=== PATIENT | female | born 1955 | race Caucasian/White ===

== ENCOUNTER 2019-06-11 00:56 | Inpatient (IN) | payer OTHER ==
[~2019-06-11] VITALS: Ht 162.6 cm; Wt 71.5 kg
[~2019-06-11 00:56] MED LIST: AMIO200T4 PO; GLIP10TA14 PO; LOSA50TA14 PO; METF100010 PO; OMEP20CA16 PO; PRAV20TA63 PO; SITA100T11 PO
[2019-06-11] MEDS ORDERED: LIDOCAINE/MYLANTA 40 ML BTL PO STA (02:45)
[2019-06-11] MEDS ORDERED: SOD CHLORIDE 0.9% 1,000 ML IV STA (02:45)
[2019-06-11] MEDS ORDERED: BELLADONNA/PHENOBARBITAL TAB PO STA (02:45)
[2019-06-11] MEDS ORDERED: KETOROLAC 15 MG INJ IV STA (02:45)
[2019-06-11] MEDS ORDERED: ONDANSETRON 4 MG INJ IV STA (02:45)
--- NOTE | 2019-06-11 03:04 | ERD ---
ER Documentation Chief Complaint Chief Complaint abdominal pain/nausea/vomiting x 1 day HPI 63-year-old woman complains of diffuse abdominal pain and cramping x1 day with a few episodes of clear nonbloody nonbilious emesis and loose stools. She has had no blood per rectum or melena, no hematemesis, no fevers or chills, no chest pa in or shortness of breath. Patient has had prior section but no other abdominal surgeries, no dysuria, no weight loss, no complaints of chest pain or shortness of breath ROS All systems reviewed and are negative except as per history of present illness. Allergies Allergies: Coded Allergies: No Known Drug Allergies (Verified Allergy, Unknown, 06/11/19) PMhx/Soc History of Surgery: Yes () Anesthesia Reaction: No Hx Neurological Disorder: No Hx Respiratory Disorders: No Hx Cardiac Disorders: Yes (HTN) Hx Psychiatric Problems: No Hx Miscellaneous Medical Probl: No Hx Alcohol Use: No Hx Substance Use: No Hx Tobacco Use: No Smoking Status: Never smoker FmHx Family History: No diabetes Physical Exam Vitals Vital Signs Date Temp Pulse Resp B/P (MAP) Pulse Ox O2 O2 Flow FiO2 Time Delivery Rate 06/11/19 97.9 79 18 118/62 98 Room Air 04:05 (80) 06/11/19 97.8 85 18 144/79 98 Room Air 02:40 (100) 06/11/19 98.1 98 18 147/82 99 01:01 (103) Physical Exam GENERAL: Well-developed, well-nourished, well-hydrated, moderate discomfort, afebrile CARDIAC: Regular rate and rhythm, no murmurs rubs or gallops LUNGS: Clear bilaterally no wheezing crackles or stridor ABDOMEN: Soft nontender, no guarding, no rigidity, no rebound, no psoas sign no obturator sign. SKIN: Warm and dry to touch, no abrasions, contusions, or hematomas, no lacerations, no ecchymosis, no target lesions, and without ulcers EXTREMITIES: No clubbing cyanosis or edema, calves are bilaterally symmetrical, no Homans sign, no popliteal cord sign. Distal pulses equal and bilateral PSYCH: Normal affect without agitation or irritability Result Diagram: 06/11/19 0246 06/11/19 0246 Results 24 hrs Laboratory Tests Test 06/11/19 02:46 White Blood Count 15.3 10^3/ul Red Blood Count 4.67 10^6/ul Hemoglobin 14.0 g/dl Hematocrit 42.9 % Mean Corpuscular Volume 91.9 fl Mean Corpuscular Hemoglobin 30.0 pg Mean Corpuscular Hemoglobin Concent 32.6 g/dl Red Cell Distribution Width 13.1 % Platelet Count 351 10^3/UL Mean Platelet Volume 9.8 fl Immature Granulocytes % 0.500 % Neutrophils % 78.0 % Lymphocytes % 13.7 % Monocytes % 6.9 % Eosinophils % 0.6 % Basophils % 0.3 % Nucleated Red Blood Cells % 0.0 /100WBC Immature Granulocytes # 0.080 10^3/ul Neutrophils # 12.0 10^3/ul Lymphocytes # 2.1 10^3/ul Monocytes # 1.1 10^3/ul Eosinophils # 0.1 10^3/ul Basophils # 0.0 10^3/ul Nucleated Red Blood Cells # 0.0 10^3/ul Prothrombin Time 11.7 Sec Prothrombin Time Ratio 0.9 INR International Normalized Ratio 0.85 Activated Partial Thromboplast Time 28.3 Sec Urine Color YELLOW Urine Clarity SLIGHTLY CLOUDY Urine pH 5.0 Urine Specific [place] 1.018 Urine Ketones NEGATIVE mg/dL Urine Nitrite POSITIVE mg/dL Urine Bilirubin NEGATIVE mg/dL Urine Urobilinogen NEGATIVE mg/dL Urine Leukocyte Esterase 3+ [place]/ul Urine Microscopic RBC 23 /HPF Urine Microscopic WBC 134 /HPF Urine Bacteria MODERATE /HPF Urine Hemoglobin 2+ mg/dL Urine Glucose 3+ mg/dL Urine Total Protein 1+ mg/dl Sodium Level 140 mmol/L Potassium Level 3.8 mmol/L Chloride Level 100 mmol/L Carbon Dioxide Level 29 mmol/L Anion Gap 11 Blood Urea Nitrogen 12 mg/dl Creatinine 0.63 mg/dl Est Glomerular Filtrat Rate mL/min > 60 mL/min Glucose Level 208 mg/dl Calcium Level 9.9 mg/dl Total Bilirubin 0.4 mg/dl Direct Bilirubin 0.00 mg/dl Indirect Bilirubin 0.4 mg/dl Aspartate Amino Transf (AST/SGOT) 25 IU/L Alanine Aminotransferase (ALT/SGPT) 30 IU/L Alkaline Phosphatase 96 IU/L Total Protein 7.5 g/dl Albumin 4.5 g/dl Globulin 3.00 g/dl Albumin/Globulin Ratio 1.50 Lipase 141 U/L Current Medications Medications Dose Sig/Julianne Start Time Status Last (Trade) Ordered Route PRN Stop Time Admin Dose Reason Admin Sodium 1,000 ml @ Q1H STAT 06/11/19 DC 06/11/19 Chloride 1,000 mls/hr IV 02:45 03:27 06/11/19 03:44 Ondansetron 4 mg ONCE STAT 06/11/19 DC 06/11/19 HCl (Zofran IV 02:45 03:08 Inj) 06/11/19 02:47 40 ml ONCE STAT 06/11/19 DC 06/11/19 Miscellaneous PO 02:45 03:10 Medication 06/11/19 02:47 (Gi Cocktail (2)) Belladonna/ 2 tab ONCE STAT 06/11/19 DC 06/11/19 Phenobarbital PO 02:45 03:10 () 06/11/19 02:47 Ketorolac 15 mg ONCE STAT 06/11/19 DC 06/11/19 Tromethamine IV 02:45 03:09 (Toradol) 06/11/19 02:47 Ceftriaxone 50 ml @ ONCE ONCE 06/11/19 DC 06/11/19 Sodium 100 mls/hr IVPB 03:30 03:27 06/11/19 03:59 Procedures/MDM IV line was established patient was placed on monitoring coordinator rhythm strip revealed a sinus rhythm at about 80 bpm with upright P and T waves. Patient was afebrile I administered 1 L normal saline IV, Toradol 15 mg IV, Zofran 4 mg IV, GI cocktail p.o. CBC revealed a leukocytosis, electrolytes were unremarkable, liver function tests normal, urinalysis positive for infection. I treated the patient with ceftriaxone [address] scan of the abdomen pelvis revealed gallstones without evidence of cholecystitis and gas within the renal collecting system and a nonobstructing 2 cm renal pelvis calculus I spoke to urologist network control operators supervisor regarding the patient's presentation and symptomatology, he recommended inpatient management and admission and agreed to consult the patient. I also administered Zosyn 3.375 g IV. Patient admitted to [facility]. Departure Diagnosis: Primary Impression: Emphysematous pyelonephritis of right kidney Additional Impression: Acute UTI Condition: ANA PAULA Wick MD Jun 11, 2019 03:04
[2019-06-11] MEDS ORDERED: CEFTRIAXONE 1 GM/50 ML (PMX) 50 ML IVPB ONE (03:30)
[2019-06-11] MEDS ORDERED: PIPER-TAZO 3.375 GM IV (PMX) 100 ML IVPB ONE (05:30)
[2019-06-11] MEDS ORDERED: TAMSULOSIN (SR) 0.4 MG CAP PO ONE (05:30)
[2019-06-11] MEDS ORDERED: DOCUSATE SODIUM 100 MG CAP PO PRN (05:30)
[2019-06-11] MEDS ORDERED: BISACODYL (EC) 5 MG TAB PO PRN (05:30)
[2019-06-11] MEDS ORDERED: ONDANSETRON 4 MG INJ IV PRN (05:30)
[2019-06-11] MEDS ORDERED: NACL 0.9% 3 ML SYG IV SCH (05:30)
[2019-06-11] MEDS: SOD CHLORIDE 0.9% 1,000 ML IV SCH ×3 (06:17→23:28)
[2019-06-11] MEDS: KETOROLAC 15 MG INJ IV SCH ×4 (06:18→23:28)
[2019-06-11 08:00] VITALS: BP 133/75; PULSE 71; RESP 18
--- NOTE | 2019-06-11 08:28 | HP ---
Date/Time of Note Date/Time of Note DATE: 06/11/19 TIME: 08:20 Assessment/Plan VTE Prophylaxis SCD applied (from Nsg): Yes Pharmacological prophylaxis: NA/contraindicated Pharm contraindication: low risk/ambulating Lines/Catheters IV Catheter Type (from Nrsg): Saline Lock Assessment/Plan Hospital Course This is a 63-year-old female being admitted to the [facility] floor for: #1 infected kidney stone: CT down pelvis shows:1. 2 cm nonobstructing right renal pelvis calcified calculus. No other calcified urinary calculi. No obstructive uropathy bilaterally. Scattered focal areas of gas within the right pelvocaliceal system ureter and urinary bladder and rule out infection versus recent instrumentation. #2 urinary tract infection: Patient did receive ceftriaxone and Zosyn in the emergency department continue ceftriaxone 2 g every 24 hours. Await urine culture results. #3 diabetes mellitus: Insulin sliding scale, hold home oral medications check hemoglobin A1c #4 hypertension: Continue losartan #5 gastritis: Continue PPI #6 hyperlipidemia: Check lipid panel, continue statin #7 DVT GI prophylaxis: SCDs, GI prophylaxis indicated1. Result Diagram: 06/11/19 0246 06/11/19 0246 Results 24hrs Laboratory Tests Test 06/11/19 02:46 White Blood Count 15.3 H Red Blood Count 4.67 Hemoglobin 14.0 Hematocrit 42.9 Mean Corpuscular Volume 91.9 Mean Corpuscular Hemoglobin 30.0 Mean Corpuscular Hemoglobin Concent 32.6 Red Cell Distribution Width 13.1 Platelet Count 351 Mean Platelet Volume 9.8 Immature Granulocytes % 0.500 H Neutrophils % 78.0 H Lymphocytes % 13.7 L Monocytes % 6.9 Eosinophils % 0.6 Basophils % 0.3 Nucleated Red Blood Cells % 0.0 Immature Granulocytes # 0.080 H Neutrophils # 12.0 H Lymphocytes # 2.1 Monocytes # 1.1 H Eosinophils # 0.1 Basophils # 0.0 Nucleated Red Blood Cells # 0.0 Prothrombin Time 11.7 L Prothrombin Time Ratio 0.9 INR International Normalized Ratio 0.85 Activated Partial Thromboplast Time 28.3 Urine Color YELLOW Urine Clarity SLIGHTLY CLOUDY A Urine pH 5.0 Urine Specific [place] 1.018 Urine Ketones NEGATIVE Urine Nitrite POSITIVE A Urine Bilirubin NEGATIVE Urine Urobilinogen NEGATIVE Urine Leukocyte Esterase 3+ H Urine Microscopic RBC 23 H Urine Microscopic WBC 134 H Urine Bacteria MODERATE Urine Hemoglobin 2+ H Urine Glucose 3+ H Urine Total Protein 1+ H Sodium Level 140 Potassium Level 3.8 Chloride Level 100 Carbon Dioxide Level 29 Anion Gap 11 Blood Urea Nitrogen 12 Creatinine 0.63 Est Glomerular Filtrat Rate mL/min > 60 Glucose Level 208 Calcium Level 9.9 Total Bilirubin 0.4 Direct Bilirubin 0.00 Indirect Bilirubin 0.4 Aspartate Amino Transf (AST/SGOT) 25 Alanine Aminotransferase (ALT/SGPT) 30 Alkaline Phosphatase 96 Total Protein 7.5 Albumin 4.5 Globulin 3.00 Albumin/Globulin Ratio 1.50 Lipase 141 HPI/ROS Admit Date/Time Admit Date/Time Jun 11, 2019 at 05:20 Hx of Present Illness Chief complaint: Abdominal pain x1 day 63-year-old woman complains of diffuse abdominal pain and cramping x1 1 week with worsening over the last night. With a few episodes of clear nonbloody nonbilious emesis and loose stools. She does report subjective fevers. She has had no blood per rectum or melena, no hematemesis, no chest pain or shortness of breath. Patient has had prior section but no other abdominal surgeries, no dysuria, no weight loss, no complaints of chest pain or shortness of breath. Allergies: NKDA Medications: Metformin 1000 mg p.o. twice daily Losartan 50 mg p.o. daily Glipizide 10 mg p.o. twice daily Omeprazole 20 mg p.o. Pravastatin 20 mg p.o. at bedtime Januvia 100 mg p.o. . ROS Const: As per HPI Eyes : No pain discharge or redness or change in visual acuity ENT: No pain, sore throat, congestion, congestion, dysphagia or discharge Respiratory: No shortness of breath, cough, sputum, wheezing, or pleuritic pain Cardiovascular: No chest pain, palpitation, PND, or edema GI : As per HPI Genitourinary: As per HPI Musculoskeletal: No joint pain, back pain, neck pain, restricted range of motion in neck or joints Skin: No rash, bruising or hives Neuro: No headache, dizziness, syncope, seizure, focal weakness Endocrine: No polyuria, polydipsia, temperature intolerance Psych: No hallucination, depression, anxiety or suicidal ideation PMH/Family/Social Past Medical History Diabetes mellitus Hypertension Hyperlipidemia Medications Current Medications Sodium Chloride 1,000 ml @ 100 mls/hr Q10H IV Last administered on 06/11/19at 06:17; Admin Dose 100 MLS/HR; Start 06/11/19 at 05:22 IV Flush (NS 3 ml) 3 ml PER PROTOCOL IV ; Start 06/11/19 at 05:30 Ondansetron HCl (Zofran Inj) 4 mg Q6H PRN IV NAUSEA/VOMITING; Start 06/11/19 at 05:30 Acetaminophen (Tylenol Tab) 650 mg Q6H PRN PO .PAIN 1-3 OR TEMP; Start 06/11/19 at 05:30 Hydromorphone HCl (Dilaudid) 0.5 mg Q4H PRN IV .SEVERE PAIN 7-10; Start 06/11/19 at 05:30 Docusate Sodium (Colace) 100 mg Q12H PRN PO .CONSTIPATION; Start 06/11/19 at 05:30 Bisacodyl (Dulcolax) 5 mg DAILY PRN PO .CONSTIPATION; Start 06/11/19 at 05:30 Ketorolac Tromethamine (Toradol) 15 mg Q6H IV Last administered on 06/11/19at 06:18; Admin Dose 15 MG; Start 06/11/19 at 05:30; Stop 06/13/19 at 05:29 Tamsulosin HCl (Flomax) 0.4 mg HS PO ; Start 06/11/19 at 21:00 Coded Allergies: No Known Drug Allergies (Verified Allergy, Unknown, 06/11/19) Past Surgical History x4 Family History Significant Family History: no pertinent family hx Social History Alcohol Use: none Smoking Status: Unknown if ever smoked Drug Use: none Exam/Review of Systems Vital Signs Vitals Vital Signs Date Temp Pulse Resp B/P (MAP) Pulse Ox O2 O2 Flow FiO2 Time Delivery Rate 06/11/19 90 18 111/62 96 Room Air 06:59 (78) 06/11/19 98.9 05:35 Exam Exam General: Patient currently lying in bed, she is in blankets and reports that she feels cold HEENT: Atraumatic, normocephalic. The pupils are equal, round and reactive. Extraocular motor are intact Neck: Supple with full range of motion. No rigidity or meningismus Chest: Nontender Lungs: Clear to auscultation bilaterally no crackles rales or wheezing Heart: Normal S1-S2, Regular rhythm and rate. No murmur, S3, or S4 Abdomen: Soft , nontender, nondistended , bowel sounds are present. No guarding no rebound tenderness , No masses or organomegaly. No costovertebral temporal angle mass Extremities: Normal to inspection, no edema no cyanosis Neurologic: Normal mental status, speech normal, cranial nerves II through XII are intact, motor and sensory are intact, Additional Comments PROCEDURE: CT Abdomen and pelvis without contrast. CLINICAL INDICATION: Abdominal pain TECHNIQUE: CT scan of the abdomen and pelvis without contrast was performed on a multidetector high-resolution CT scan. . Coronal and sagittal reformatted images were obtained from the axial source images. Standard CT scan of the abdomen pelvis without contrast protocols were performed. The total exam CTDI equals 11.99 mGy and the total exam DLP equals 698.25 mGy- cm. One or more of the following dose reduction techniques were used: - Automated exposure control. - Adjustment of the mA and/or kV according to patient size. Use of iterative reconstruction technique. Dicom images are available COMPARISON: None. FINDINGS: The kidneys are normal in size without hydronephrosis or intra renal masses bilaterally. In the right renal pelvis is a 2 cm non-obstructing calcified calculus. No other calcified calculi bilaterally. Note that there are scattered focal areas of gas within the right pelvocaliceal system and right ureter and urinary bladder and rule out infection. Left ureter are unremarkable. Contracted urinary bladder otherwise unremarkable. A definite appendix is not visualized however no CT evidence of appendicitis. The stomach small bowel and large bowel are unremarkable. No evidence of intra-abdominal free air, free fluid, abscesses or lymphadenopathy. The diffuse mild hepatic fatty infiltration without focal hepatic lesions. Spleen pancreas and adrenal glands unremarkable. 5 mm calcified gallstone at the level the gallbladder neck within an otherwise unremarkable contracted gallbladder. No biliary ductal dilation. Mild dependent subsegmental atelectasis and chronic interstitial lung disease. Calcific atherosclerosis of the aorta and iliac arteries without aneurysm. Abdominal pelvic wall unremarkable. Degenerative changes lower thoracic and lumbar spine without acute osseous findings are osteoblastic/osteolytic lesions. IMPRESSION: 1. 2 cm nonobstructing right renal pelvis calcified calculus. No other calcified urinary calculi. No obstructive uropathy bilaterally. 2. Scattered focal areas of gas within the right pelvocaliceal system ureter and urinary bladder and rule out infection versus recent instrumentation. 3. 5 mm calcified gallstone within an otherwise contracted gallbladder. No biliary ductal dilation. 4. Hepatic fatty infiltration. Addendum: Dr. Gerard was telephoned this results and 06/11/2019 at 0505 hours. RPTAT:AAJJ Physician Sofie Date Time Electronically viewed and signed by Faby Lima Physician on 06/11/2019 05:18 BM/ CC: ANA PAULA GERARD MD [id number] DEBBIE WALLACE Jun 11, 2019 08:28
--- NOTE | 2019-06-11 08:44 | CONS ---
Assessment/Plan Assessment/Plan Hospital Course (Demo Recall) 33-year-old female was visiting her in the hospital when she had severe right flank pain and abdominal cramps with nausea and vomiting. She went to the emergency room and had a CT scan that showed: 1. 2 cm nonobstructing right renal pelvis calcified calculus. No other calcified urinary calculi. No obstructive uropathy bilaterally. 2. Scattered focal areas of gas within the right pelvocaliceal system ureter and urinary bladder and rule out infection versus recent instrumentation. 3. 5 mm calcified gallstone within an otherwise contracted gallbladder. No bili josue ductal dilation. 4. Hepatic fatty infiltration. Patient denies having prior history of kidney stone but she has had urinary tract infections The patient most likely does have urinary tract infection. The stone in her right renal pelvis is large and will need to be treated but not at this time. The stone is not obstructing and therefore she does not need to have a JJ stent now. She may need a JJ stent when the stone is broken. At the present time will just have to treat her urinary tract infection and she should follow-up after her discharge with her medical group and referred to the urologist contracted with that medical group.([facility], [facility]) Consultation Date/Type/Reason Admit Date/Time Jun 11, 2019 at 05:20 Date of Consultation: Jun 11, 2019 Type of Consult Urology Reason for Consultation Right renal stone and air in the right renal pelvis Requesting Provider: DEBBIE WALLACE Date/Time of Note DATE: 06/11/19 TIME: 08:36 Hx of Present Illness 33-year-old female was visiting her in the hospital when she had severe right flank pain and abdominal cramps with nausea and vomiting. She went to the emergency room and had a CT scan that showed: 1. 2 cm nonobstructing right renal pelvis calcified calculus. No other calcified urinary calculi. No obstructive uropathy bilaterally. 2. Scattered focal areas of gas within the right pelvocaliceal system ureter and urinary bladder and rule out infection versus recent instrumentation. 3. 5 mm calcified gallstone within an otherwise contracted gallbladder. No biliary ductal dilation. 4. Hepatic fatty infiltration. Patient denies having prior history of kidney stone but she has had urinary tract infections Constitutional: no complaints Eyes: no complaints ENT: no complaints Respiratory: no complaints; No shortness of breath, No wheezing Cardiovascular: no complaints Gastrointestinal: nausea, vomiting Genitourinary: other (No urgency or urgency incontinence and no urinary frequency); No dysuria Musculoskeletal: no complaints Skin: no complaints Neurologic: no complaints Endocrine: no complaints Past Medical History Medical History: diabetes, high cholesterol, hypertension Home Meds Reported Medications Sitagliptin* (Januvia*) 100 Mg Tablet, 100 MG PO DAILY, #30 TAB 06/11/19 Amiodarone Hcl* (Amiodarone Hcl*) 200 Mg Tablet, 200 MG PO DAILY, #30 TAB 06/11/19 Losartan Potassium* (Losartan Potassium*) 50 Mg Tablet, 50 MG PO DAILY, TAB 06/11/19 Pravastatin Sodium* (Pravastatin Sodium*) 20 Mg Tablet, 20 MG PO HS, TAB 06/11/19 Omeprazole* (Omeprazole*) 20 Mg Capsule.dr, 20 MG PO DAILY, #30 CAP 06/11/19 Metformin Hcl* (Metformin Hcl*) 1,000 Mg Tablet, 1000 MG PO WITH BREAKFAST DINNE, #60 TAB 06/11/19 Glipizide* (Glipizide*) 10 Mg Tablet, 10 MG PO BID, TAB 06/11/19 Medications Current Medications Sodium Chloride 1,000 ml @ 100 mls/hr Q10H IV Last administered on 06/11/19at 06:17; Admin Dose 100 MLS/HR; Start 06/11/19 at 05:22 IV Flush (NS 3 ml) 3 ml PER PROTOCOL IV ; Start 06/11/19 at 05:30 Ondansetron HCl (Zofran Inj) 4 mg Q6H PRN IV NAUSEA/VOMITING; Start 06/11/19 at 05:30 Acetaminophen (Tylenol Tab) 650 mg Q6H PRN PO .PAIN 1-3 OR TEMP; Start 06/11/19 at 05:30 Hydromorphone HCl (Dilaudid) 0.5 mg Q4H PRN IV .SEVERE PAIN 7-10; Start 06/11/19 at 05:30 Docusate Sodium (Colace) 100 mg Q12H PRN PO .CONSTIPATION; Start 06/11/19 at 05:30 Bisacodyl (Dulcolax) 5 mg DAILY PRN PO .CONSTIPATION; Start 06/11/19 at 05:30 Ketorolac Tromethamine (Toradol) 15 mg Q6H IV Last administered on 06/11/19at 06:18; Admin Dose 15 MG; Start 06/11/19 at 05:30; Stop 06/13/19 at 05:29 Tamsulosin HCl (Flomax) 0.4 mg HS PO ; Start 06/11/19 at 21:00 Ceftriaxone Sodium 50 ml @ 100 mls/hr Q24H IVPB ; Start 06/12/19 at 03:00 Losartan Potassium (Cozaar) 50 mg DAILY PO ; Start 06/11/19 at 09:00 Pantoprazole (Protonix Tab) 40 mg DAILY@06 PO ; Start 06/11/19 at 09:00 Miscellaneous Information 20 mg HS PO ; Start 06/11/19 at 21:00; Status UNV Allergies: Coded Allergies: No Known Drug Allergies (Verified Allergy, Unknown, 06/11/19) Past Surgical History Past Surgical Hx: other () Social History Alcohol Use: none Smoking Status: Unknown if ever smoked Drug Use: none Exam/Review of Systems Exam Vitals Vital Signs Date Temp Pulse Resp B/P (MAP) Pulse Ox O2 O2 Flow FiO2 Time Delivery Rate 06/11/19 90 18 111/62 96 Room Air 06:59 (78) 06/11/19 98.9 05:35 Constitutional: alert Psych: no complaints Head: normocephalic Eyes: nl conjunctiva ENMT: nl external ears & nose Neck: supple Respiratory: No wheezing Cardiovascular: No jugular venous distention (JVD) Gastrointestinal: soft Genitourinary - Female: CVA tenderness (Right side) Musculoskeletal: nl extremities to inspection Extremities: normal pulses Neurological: nl mental status Skin: nl turgor Results Result Diagram: 06/11/19 0246 06/11/19 0246 Results 24hrs Laboratory Tests Test 06/11/19 02:46 White Blood Count 15.3 H Red Blood Count 4.67 Hemoglobin 14.0 Hematocrit 42.9 Mean Corpuscular Volume 91.9 Mean Corpuscular Hemoglobin 30.0 Mean Corpuscular Hemoglobin Concent 32.6 Red Cell Distribution Width 13.1 Platelet Count 351 Mean Platelet Volume 9.8 Immature Granulocytes % 0.500 H Neutrophils % 78.0 H Lymphocytes % 13.7 L Monocytes % 6.9 Eosinophils % 0.6 Basophils % 0.3 Nucleated Red Blood Cells % 0.0 Immature Granulocytes # 0.080 H Neutrophils # 12.0 H Lymphocytes # 2.1 Monocytes # 1.1 H Eosinophils # 0.1 Basophils # 0.0 Nucleated Red Blood Cells # 0.0 Prothrombin Time 11.7 L Prothrombin Time Ratio 0.9 INR International Normalized Ratio 0.85 Activated Partial Thromboplast Time 28.3 Urine Color YELLOW Urine Clarity SLIGHTLY CLOUDY A Urine pH 5.0 Urine Specific [place] 1.018 Urine Ketones NEGATIVE Urine Nitrite POSITIVE A Urine Bilirubin NEGATIVE Urine Urobilinogen NEGATIVE Urine Leukocyte Esterase 3+ H Urine Microscopic RBC 23 H Urine Microscopic WBC 134 H Urine Bacteria MODERATE Urine Hemoglobin 2+ H Urine Glucose 3+ H Urine Total Protein 1+ H Sodium Level 140 Potassium Level 3.8 Chloride Level 100 Carbon Dioxide Level 29 Anion Gap 11 Blood Urea Nitrogen 12 Creatinine 0.63 Est Glomerular Filtrat Rate mL/min > 60 Glucose Level 208 Calcium Level 9.9 Total Bilirubin 0.4 Direct Bilirubin 0.00 Indirect Bilirubin 0.4 Aspartate Amino Transf (AST/SGOT) 25 Alanine Aminotransferase (ALT/SGPT) 30 Alkaline Phosphatase 96 Total Protein 7.5 Albumin 4.5 Globulin 3.00 Albumin/Globulin Ratio 1.50 Lipase 141 Imaging Imaging The scan of the abdomen and pelvis: 1. 2 cm nonobstructing right renal pelvis calcified calculus. No other [place] cified urinary calculi. No obstructive uropathy bilaterally. 2. Scattered focal areas of gas within the right pelvocaliceal system ureter and urinary bladder and rule out infection versus recent instrumentation. 3. 5 mm calcified gallstone within an otherwise contracted gallbladder. No biliary ductal dilation. 4. Hepatic fatty infiltration. Medications Medication Current Medications Sodium Chloride 1,000 ml @ 100 mls/hr Q10H IV Last administered on 06/11/19at 06:17; Admin Dose 100 MLS/HR; Start 06/11/19 at 05:22 IV Flush (NS 3 ml) 3 ml PER PROTOCOL IV ; Start 06/11/19 at 05:30 Ondansetron HCl (Zofran Inj) 4 mg Q6H PRN IV NAUSEA/VOMITING; Start 06/11/19 at 05:30 Acetaminophen (Tylenol Tab) 650 mg Q6H PRN PO .PAIN 1-3 OR TEMP; Start 06/11/19 at 05:30 Hydromorphone HCl (Dilaudid) 0.5 mg Q4H PRN IV .SEVERE PAIN 7-10; Start 9 at 05:30 Docusate Sodium (Colace) 100 mg Q12H PRN PO .CONSTIPATION; Start 06/11/19 at 05:30 Bisacodyl (Dulcolax) 5 mg DAILY PRN PO .CONSTIPATION; Start 06/11/19 at 05:30 Ketorolac Tromethamine (Toradol) 15 mg Q6H IV Last administered on 06/11/19at 06:18; Admin Dose 15 MG; Start 06/11/19 at 05:30; Stop 06/13/19 at 05:29 Tamsulosin HCl (Flomax) 0.4 mg HS PO ; Start 06/11/19 at 21:00 Ceftriaxone Sodium 50 ml @ 100 mls/hr Q24H IVPB ; Start 06/12/19 at 03:00 Losartan Potassium (Cozaar) 50 mg DAILY PO ; Start 06/11/19 at 09:00 Pantoprazole (Protonix Tab) 40 mg DAILY@06 PO ; Start 06/11/19 at 09:00 Miscellaneous Information 20 mg HS PO ; Start 06/11/19 at 21:00; Status JUNIOR COLE MD Jun 11, 2019 08:44
[2019-06-11] MEDS: PANTOPRAZOLE (EC) 40 MG TAB PO SCH (09:18)
[2019-06-11] MEDS: HYDROmorphONE 0.5 MG/0.5 ML SYG IV PRN (09:18)
[2019-06-11] MEDS: LOSARTAN 50 MG TAB PO SCH (09:19)
[2019-06-11 11:51] VITALS: Ht 162.6 cm; Wt 71.5 kg
[2019-06-11 14:36] VITALS: BP 103/63; PULSE 78; RESP 18
--- NOTE | 2019-06-11 15:06 | EN ---
Date/Time of Note Date/Time of Note DATE: 06/11/19 TIME: 15:01 Event Note Medicine Medicine Event Note 63-year-old woman complains of diffuse abdominal pain and cramping x1 1 week with a few episodes of clear nonbloody nonbilious emesis and loose stools. She also reported subjective fevers She was admitted to the [facility] floor for: #1 infected kidney stone: CT down pelvis shows:1. 2 cm nonobstructing right renal pelvis calcified calculus. No other calcified urinary calculi. No obstructive uropathy bilaterally. Scattered focal areas of gas within the right pelvocaliceal system ureter and urinary bladder and rule out infection versus recent instrumentation. - per urology, The patient most likely does have urinary tract infection. The stone in her right renal pelvis is large and will need to be treated but not at this time. The stone is not obstructing and therefore she does not need to have a JJ stent now. She may need a JJ stent when the stone is broken. At the present time will just have to treat her urinary tract infection and she should follow-up after her discharge with her medical group and referred to the urologist contracted with that medical group.([facility], [facility]) #2 urinary tract infection: continue ceftriaxone 2 g every 24 hours. Await urine culture results. #3 diabetes mellitus: Insulin sliding scale, start hypoglycemic regimen as is safe #4 hypertension: Continue losartan #5 gastritis: Continue PPI further interventions per course KINJAL RHODES Jun 11, 2019 15:06
[2019-06-11] MEDS ORDERED: GLUCOSE GEL 15 GRAM TUBE PO PRN ×2 (15:30)
[2019-06-11] MEDS ORDERED: GLUCOSE GEL 15 GRAM TUBE BUCCAL PRN (15:30)
[2019-06-11] MEDS ORDERED: DEXTROSE 50% 50 ML SYRINGE IV PRN ×2 (15:30)
[2019-06-11] MEDS ORDERED: GLUCAGON 1 MG INJ IM PRN (15:30)
[2019-06-11] MEDS: ACETAMINOPHEN 325 MG TAB PO PRN (16:31)
[2019-06-11] MEDS: INSULIN GLARGINE [LANTus] (100 UNITS/ML) SYG SC SCH (17:28)
[2019-06-11] MEDS: INSULIN ASPART [NOVOLOG] 3 ML PEN SC SCH ×2 (17:32→21:00)
[2019-06-11 20:00] VITALS: BP 114/64; PULSE 73; RESP 18
[2019-06-11] MEDS ORDERED: TAMSULOSIN (SR) 0.4 MG CAP PO SCH (21:00)
[2019-06-11] MEDS: ATORVASTATIN 10 MG TAB PO SCH (21:03)
[2019-06-11] MEDS: LACTOBACILLUS RHAMNOSUS CAP PO SCH (21:03)
[2019-06-12 02:00] VITALS: BP 125/70; PULSE 73; RESP 17
[2019-06-12] MEDS: ACETAMINOPHEN 325 MG TAB PO PRN ×2 (02:19→08:27)
[2019-06-12] MEDS: CEFTRIAXONE 2 GM/50 ML (PMX) 50 ML IVPB SCH (02:19)
[2019-06-12] MEDS: KETOROLAC 15 MG INJ IV SCH ×4 (05:37→22:49)
[2019-06-12] MEDS: PANTOPRAZOLE (EC) 40 MG TAB PO SCH (05:38)
[2019-06-12] MEDS: INSULIN ASPART [NOVOLOG] 3 ML PEN SC SCH ×7 (08:00→21:26)
--- NOTE | 2019-06-12 08:02 | CONS ---
Consult Date/Type/Reason Admit Date/Time Jun 11, 2019 at 05:20 Initial Consult Date 06/11/19 Type of Consultation: Urology Reason for Consultation Right renal stone and infection Requesting Provider: DEBBIE WALLACE Date/Time of Note DATE: 06/12/19 TIME: 07:59 Subjective Patient is feeling better, she has no pain and is voiding well Objective Vitals Vital Signs Date Temp Pulse Resp B/P (MAP) Pulse Ox O2 O2 Flow FiO2 Time Delivery Rate 06/12/19 97.8 73 17 125/70 96 02:00 (88) 06/11/19 Room Air 06:59 Intake and Output 06/11/19 06/11/19 06/12/19 1515:00 23:00 07:00 IntakeIntake Total 240 ml 905 ml 790 ml OutputOutput Total 400 ml 200 ml 2200 ml BalanceBalance -160 ml 705 ml -1410 ml Exam The abdomen is soft and there is no flank tenderness. Results/Medications Result Diagram: 06/12/19 0513 06/12/19 0513 Results 24 hrs Laboratory Tests Test 06/11/19 09:15 06/11/19 11:57 06/11/19 17:07 06/11/19 21:02 Bedside Glucose 138 183 138 111 Test 06/12/19 05:13 06/12/19 05:15 White Blood Count 4.9 # Red Blood Count 3.74 L Hemoglobin 11.3 L Hematocrit 34.3 #L Mean Corpuscular 91.7 Volume Mean Corpuscular 30.2 Hemoglobin Mean Corpuscular 32.9 Hemoglobin Concent Red Cell 13.1 Distribution Width Platelet Count 272 # Mean Platelet Volume 9.9 Immature 0.400 Granulocytes % Neutrophils % 51.1 Lymphocytes % 36.3 Monocytes % 8.9 Eosinophils % 2.9 Basophils % 0.4 Nucleated Red Blood 0.0 Cells % Immature 0.020 Granulocytes # Neutrophils # 2.5 Lymphocytes # 1.8 Monocytes # 0.4 Eosinophils # 0.1 Basophils # 0.0 Nucleated Red Blood 0.0 Cells # Sodium Level 143 Potassium Level 4.0 Chloride Level 110 # Carbon Dioxide Level 27 Anion Gap 6 Blood Urea Nitrogen 7 Creatinine 0.56 Est Glomerular > 60 Filtrat Rate mL/min Glucose Level 110 # Calcium Level 8.5 Magnesium Level 1.6 L Total Bilirubin 0.3 Direct Bilirubin 0.00 Indirect Bilirubin 0.3 Aspartate Amino 20 Transf (AST/SGOT) Alanine 32 Aminotransferase (AL T/SGPT) Alkaline Phosphatase 62 Total Protein 5.2 #L Albumin 2.9 #L Globulin 2.30 Albumin/Globulin 1.26 Ratio Thyroid Stimulating 0.850 Hormone (TSH) Free Thyroxine Index Pending Thyroxine (T4) Pending Triiodothyronine 35.8 (T3) Uptake Hemoglobin A1c 8.0 H Home Meds Reported Medications Sitagliptin* (Januvia*) 100 Mg Tablet, 100 MG PO DAILY, #30 TAB 06/11/19 Amiodarone Hcl* (Amiodarone Hcl*) 200 Mg Tablet, 200 MG PO DAILY, #30 TAB 06/11/19 Losartan Potassium* (Losartan Potassium*) 50 Mg Tablet, 50 MG PO DAILY, TAB 06/11/19 Pravastatin Sodium* (Pravastatin Sodium*) 20 Mg Tablet, 20 MG PO HS, TAB 06/11/19 Omeprazole* (Omeprazole*) 20 Mg Capsule.dr, 20 MG PO DAILY, #30 CAP 06/11/19 Metformin Hcl* (Metformin Hcl*) 1,000 Mg Tablet, 1000 MG PO WITH BREAKFAST DINNE, #60 TAB 06/11/19 Glipizide* (Glipizide*) 10 Mg Tablet, 10 MG PO BID, TAB 06/11/19 Medications Current Medications Sodium Chloride 1,000 ml @ 100 mls/hr Q10H IV Last administered on 06/11/19at 23:28; Admin Dose 100 MLS/HR; Start 06/11/19 at 05:22 IV Flush (NS 3 ml) 3 ml PER PROTOCOL IV ; Start 06/11/19 at 05:30 Ondansetron HCl (Zofran Inj) 4 mg Q6H PRN IV NAUSEA/VOMITING; Start 06/11/19 at 05:30 Acetaminophen (Tylenol Tab) 650 mg Q6H PRN PO .PAIN 1-3 OR TEMP Last administered on 06/12/19at 02:19; Admin Dose 650 MG; Start 06/11/19 at 05:30 Hydromorphone HCl (Dilaudid) 0.5 mg Q4H PRN IV .SEVERE PAIN 7-10 Last administered on 06/11/19at 09:18; Admin Dose 0.5 MG; Start 06/11/19 at 05:30 Docusate Sodium (Colace) 100 mg Q12H PRN PO .CONSTIPATION; Start 06/11/19 at 05:30 Bisacodyl (Dulcolax) 5 mg DAILY PRN PO .CONSTIPATION; Start 06/11/19 at 05:30 Ketorolac Tromethamine (Toradol) 15 mg Q6H IV Last administered on 06/12/19at 05:37; Admin Dose 15 MG; Start 06/11/19 at 05:30; Stop 06/13/19 at 05:29 Tamsulosin HCl (Flomax) 0.4 mg HS PO Last administered on 06/11/19 21:03; Admin Dose 0.4 MG; Start 06/11/19 at 21:00 Ceftriaxone Sodium 50 ml @ 100 mls/hr Q24H IVPB Last administered on 06/12/19 02:19; Admin Dose 100 MLS/HR; Start 06/12/19 at 03:00 Losartan Potassium (Cozaar) 50 mg DAILY PO Last administered on 06/11/19at 09:19; Admin Dose 50 MG; Start 06/11/19 at 09:00 Pantoprazole (Protonix Tab) 40 mg DAILY@06 PO Last administered on 06/12/19at 05:38; Admin Dose 40 MG; Start 06/11/19 at 09:00 Atorvastatin Calcium (Lipitor) 10 mg DAILY@21 PO Last administered on 06/11/19at 21:03; Admin Dose 10 MG; Start 06/11/19 at 21:00 Insulin Glargine (Lantus) 11 units DAILY@0800 SC Last administered on 06/11/19at 17:28; Admin Dose 11 UNITS; Start 06/11/19 at 16:30 Insulin Aspart (Novolog Insulin Pen) 4 unit WITH MEALS SC Last administered on 06/11/19at 17:32; Admin Dose 4 UNIT; Start 06/11/19 at 17:35 Lactobacillus Acidophilus/ Rhamnosus (Culturelle) 1 cap BID PO Last administered on 06/11/19at 21:03; Admin Dose 1 CAP; Start 06/11/19 at 21:00 Miscellaneous Information 1 ea NOTE XX ; Start 06/11/19 at 15:30 Glucose (Glutose) 15 gm Q15M PRN PO DECREASED GLUCOSE; Start 06/11/19 at 15:30 Glucose (Glutose) 22.5 gm Q15M PRN PO DECREASED GLUCOSE; Start 06/11/19 at 15:30 Dextrose (D50w Syringe) 25 ml Q15M PRN IV DECREASED GLUCOSE; Start 06/11/19 at 15:30 Dextrose (D50w Syringe) 50 ml Q15M PRN IV DECREASED GLUCOSE; Start 06/11/19 at 15:30 Glucagon (Glucagen) 1 mg Q15M PRN IM DECREASED GLUCOSE; Start 06/11/19 at 15:30 Glucose (Glutose) 15 gm Q15M PRN BUCCAL DECREASED GLUCOSE; Start 06/11/19 at 15:30 Insulin Aspart (Novolog Insulin Pen) NOVOLOG *MILD* ALGORITHM WITH MEALS BEDTIME SC ; Start 06/11/19 at 21:00 Assessment/Plan Hospital Course (Demo Recall) 33-year-old female was visiting her in the hospital when she had severe right flank pain and abdominal cramps with nausea and vomiting. She went to the emergency room and had a CT scan that showed: 1. 2 cm nonobstructing right renal pelvis calcified calculus. No other calcified urinary calculi. No obstructive uropathy bilaterally. 2. Scattered focal areas of gas within the right pelvocaliceal system ureter and urinary bladder and rule out infection versus recent instrumentation. 3. 5 mm calcified gallstone within an otherwise contracted gallbladder. No biliary ductal dilation. 4. Hepatic fatty infiltration. Patient denies having prior history of kidney stone but she has had urinary tract infections Patient is feeling better today. She has no pain and is voiding well. Urine culture is still pending. Her white count has come down to normal. Once we get the results of the cultures then we could determine what antibiotic to put her on and then she may be discharged home on antibiotic and follow-up with her primary care doctor and the urologist who is contracted with her medical group. JUNIOR DENT MD Jun 12, 2019 08:02
[2019-06-12 08:07] VITALS: BP 129/70; PULSE 65; RESP 16
[2019-06-12] MEDS: INSULIN GLARGINE [LANTus] (100 UNITS/ML) SYG SC SCH (08:16)
[2019-06-12] MEDS: LOSARTAN 50 MG TAB PO SCH (08:17)
[2019-06-12] MEDS: LACTOBACILLUS RHAMNOSUS CAP PO SCH ×2 (08:17→21:26)
[2019-06-12] MEDS: SOD CHLORIDE 0.9% 1,000 ML IV SCH ×2 (11:13→22:49)
[2019-06-12 14:00] VITALS: BP 119/73; PULSE 88; RESP 16
--- NOTE | 2019-06-12 14:23 | PN ---
Date/Time of Note Date/Time of Note DATE: 06/12/19 TIME: 14:11 Assessment/Plan VTE Prophylaxis Risk score (from [facility])>0 risk: 2 SCD applied (from [facility]): Yes Pharmacological prophylaxis: other Pharm contraindication: other Lines/Catheters IV C[facility]ter Type (from [facility]): Peripheral IV Urinary Cath still in place: No Assessment/Plan Assessment/Plan 1. UTI, improving on Rocephin, follow up with culture 2. 2 cm nonobstructing right renal pelvis calcified calculus, possible infected, continue antibiotics, follow up with urology 3. Diabetes mellitus, on insulins 4. Hypertension, controlled 5. Gastritis: Continue PPI 7. DVT prophylaxis: SCDs 8. Discharge with antibiotics when culture is available Result Diagram: 06/12/1951206/12/19512 Results 24hrs Laboratory Tests Test 06/11/19 17:07 06/11/19 21:02 06/12/19 05:13 06/12/19 05:15 Bedside Glucose 138 111 White Blood Count 4.9 # Red Blood Count 3.74 L Hemoglobin 11.3 L Hematocrit 34.3 #L Mean Corpuscular 91.7 Volume Mean Corpuscular 30.2 Hemoglobin Mean Corpuscular 32.9 Hemoglobin Concent Red Cell 13.1 Distribution Width Platelet Count 272 # Mean Platelet Volume 9.9 Immature 0.400 Granulocytes % Neutrophils % 51.1 Lymphocytes % 36.3 Monocytes % 8.9 Eosinophils % 2.9 Basophils % 0.4 Nucleated Red Blood 0.0 Cells % Immature 0.020 Granulocytes # Neutrophils # 2.5 Lymphocytes # 1.8 Monocytes # 0.4 Eosinophils # 0.1 Basophils # 0.0 Nucleated Red Blood 0.0 Cells # Sodium Level 143 Potassium Level 4.0 Chloride Level 110 # Carbon Dioxide Level 27 Anion Gap 6 Blood Urea Nitrogen 7 Creatinine 0.56 Est Glomerular > 60 Filtrat Rate mL/min Glucose Level 110 # Calcium Level 8.5 Magnesium Level 1.6 L Total Bilirubin 0.3 Direct Bilirubin 0.00 Indirect Bilirubin 0.3 Aspartate Amino 20 Transf (AST/SGOT) Alanine 32 Aminotransferase (AL T/SGPT) Alkaline Phosphatase 62 Total Protein 5.2 #L Albumin 2.9 #L Globulin 2.30 Albumin/Globulin 1.26 Ratio Thyroid Stimulating 0.850 Hormone (TSH) Free Thyroxine Index Pending Thyroxine (T4) Pending Triiodothyronine 35.8 (T3) Uptake Hemoglobin A1c 8.0 H Test 06/12/19 08:01 06/12/19 11:56 Bedside Glucose 111 203 Subjective 24 Hr Interval Summary Free Text/Dictation afebrile, mild right flank pain Exam/Review of Systems Exam Vitals Vital Signs Date Temp Pulse Resp B/P (MAP) Pulse Ox O2 O2 Flow FiO2 Time Delivery Rate 06/12/19 97.7 65 16 129/70 96 08:07 (89) 06/11/19 Room Air 06:59 Intake and Output 06/11/19 06/11/19 06/12/19 1515:00 23:00 07:00 IntakeIntake Total 240 ml 905 ml 790 ml OutputOutput Total 400 ml 200 ml 2200 ml BalanceBalance -160 ml 705 ml -1410 ml Constitutional: alert, oriented, well developed Psych: no complaints, nl mood/affect Head: normocephalic, atraumatic Eyes: nl conjunctiva, EOMI, nl lids, PERRL ENMT: nl external ears & nose, nl lips & teeth, nl nasal mucosa & septum Neck: supple, non-tender Respiratory: clear to auscultation, normal air movement; No congested cough, No crackles/rales, No diminished breath sounds, No intercostal retraction, No labored breathing, No respirations, No tactile fremitus, No wheezing, No other Cardiovascular: regular rate and rhythm, nl pulses; No bruits, No diastolic murmur, No edema, No gallop, No irregular rhythm, No jugular venous distention (JVD), No murmurs/extra sounds, No rub, No systolic murmur, No S3, No S4, No other Gastrointestinal: soft, nl liver, spleen, non-tender Musculoskeletal: nl extremities to inspection Extremities: normal pulses; No calf tenderness, No cyanosis, No clubbing, No edema, No pitting pedal edema, No palpable cord, No tenderness, No other 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, nl mental status, nl speech, nl strength Skin: nl turgor Results Results 24hrs Laboratory Tests Test 06/11/19 17:07 06/11/19 21:02 06/12/19 05:13 06/12/19 05:15 Bedside Glucose 138 111 White Blood Count 4.9 # Red Blood Count 3.74 L Hemoglobin 11.3 L Hematocrit 34.3 #L Mean Corpuscular 91.7 Volume Mean Corpuscular 30.2 Hemoglobin Mean Corpuscular 32.9 Hemoglobin Concent Red Cell 13.1 Distribution Width Platelet Count 272 # Mean Platelet Volume 9.9 Immature 0.400 Granulocytes % Neutrophils % 51.1 Lymphocytes % 36.3 Monocytes % 8.9 Eosinophils % 2.9 Basophils % 0.4 Nucleated Red Blood 0.0 Cells % Immature 0.020 Granulocytes # Neutrophils # 2.5 Lymphocytes # 1.8 Monocytes # 0.4 Eosinophils # 0.1 Basophils # 0.0 Nucleated Red Blood 0.0 Cells # Sodium Level 143 Potassium Level 4.0 Chloride Level 110 # Carbon Dioxide Level 27 Anion Gap 6 Blood Urea Nitrogen 7 Creatinine 0.56 Est Glomerular > 60 Filtrat Rate mL/min Glucose Level 110 # Calcium Level 8.5 Magnesium Level 1.6 L Total Bilirubin 0.3 Direct Bilirubin 0.00 Indirect Bilirubin 0.3 Aspartate Amino 20 Transf (AST/SGOT) Alanine 32 Aminotransferase (AL T/SGPT) Alkaline Phosphatase 62 Total Protein 5.2 #L Albumin 2.9 #L Globulin 2.30 Albumin/Globulin 1.26 Ratio Thyroid Stimulating 0.850 Hormone (TSH) Free Thyroxine Index Pending Thyroxine (T4) Pending Triiodothyronine 35.8 (T3) Uptake Hemoglobin A1c 8.0 H Test 06/12/19 08:01 06/12/19 11:56 Bedside Glucose 111 203 Medications Medication Current Medications Sodium Chloride 1,000 ml @ 100 mls/hr Q10H IV Last administered on 06/12/19at 11:13; Admin Dose 100 MLS/HR; Start 06/11/19 at 05:22 IV Flush (NS 3 ml) 3 ml PER PROTOCOL IV ; Start 06/11/19 at 05:30 Ondansetron HCl (Zofran Inj) 4 mg Q6H PRN IV NAUSEA/VOMITING Last administered on 06/12/19at 08:29; Admin Dose 4 MG; Start 06/11/19 at 05:30 Acetaminophen (Tylenol Tab) 650 mg Q6H PRN PO .PAIN 1-3 OR TEMP Last administered on 06/12/19at 08:27; Admin Dose 650 MG; Start 06/11/19 at 05:30 Hydromorphone HCl (Dilaudid) 0.5 mg Q4H PRN IV .SEVERE PAIN 7-10 Last administered on 06/11/19 09:18; Admin Dose 0.5 MG; Start 06/11/19 at 05:30 Docusate Sodium (Colace) 100 mg Q12H PRN PO .CONSTIPATION; Start 06/11/19 at 05:30 Bisacodyl (Dulcolax) 5 mg DAILY PRN PO .CONSTIPATION; Start 06/11/19 at 05:30 Ketorolac Tromethamine (Toradol) 15 mg Q6H IV Last administered on 06/12/19 11:12; Admin Dose 15 MG; Start 06/11/19 at 05:30; Stop 06/13/19 at 05:29 Tamsulosin HCl (Flomax) 0.4 mg HS PO Last administered on 06/11/19 21:03; Admin Dose 0.4 MG; Start 06/11/19 at 21:00 Ceftriaxone Sodium 50 ml @ 100 mls/hr Q24H IVPB Last administered on 06/12/19 02:19; Admin Dose 100 MLS/HR; Start 06/12/19 at 03:00 Losartan Potassium (Cozaar) 50 mg DAILY PO Last administered on 06/12/19 08:17; Admin Dose 50 MG; Start 06/11/19 at 09:00 Pantoprazole (Protonix Tab) 40 mg DAILY@06 PO Last administered on 06/12/19 05:38; Admin Dose 40 MG; Start 06/11/19 at 09:00 Atorvastatin Calcium (Lipitor) 10 mg DAILY@21 PO Last administered on 06/11/19 21:03; Admin Dose 10 MG; Start 06/11/19 at 21:00 Insulin Glargine (Lantus) 11 units DAILY@0800 SC Last administered on 06/12/19 08:16; Admin Dose 11 UNITS; Start 06/11/19 at 16:30 Insulin Aspart (Novolog Insulin Pen) 4 unit WITH MEALS SC Last administered on 06/12/19 12:13; Admin Dose 4 UNIT; Start 06/11/19 at 17:35 Lactobacillus Acidophilus/ Rhamnosus (Culturelle) 1 cap BID PO Last admin istered on 06/12/19 08:17; Admin Dose 1 CAP; Start 06/11/19 at 21:00 Miscellaneous Information 1 ea NOTE XX ; Start 06/11/19 at 15:30 Glucose (Glutose) 15 gm Q15M PRN PO DECREASED GLUCOSE; Start 06/11/19 at 15:30 Glucose (Glutose) 22.5 gm Q15M PRN PO DECREASED GLUCOSE; Start 06/11/19 at 15:30 Dextrose (D50w Syringe) 25 ml Q15M PRN IV DECREASED GLUCOSE; Start 06/11/19 at 15:30 Dextrose (D50w Syringe) 50 ml Q15M PRN IV DECREASED GLUCOSE; Start 06/11/19 at 15:30 Glucagon (Glucagen) 1 mg Q15M PRN IM DECREASED GLUCOSE; Start 06/11/19 at 15:30 Glucose (Glutose) 15 gm Q15M PRN BUCCAL DECREASED GLUCOSE; Start 06/11/19 at 15:30 Insulin Aspart (Novolog Insulin Pen) NOVOLOG *MILD* ALGORITHM WITH MEALS BEDTIME SC Last administered on 06/12/19at 12:14; Admin Dose 2 UNIT; Start 06/11/19 at 21:00 RAMSES RIVERA MD Jun 12, 2019 14:21
[2019-06-12 20:33] VITALS: BP 115/59; PULSE 80; RESP 16
[2019-06-12] MEDS: ATORVASTATIN 10 MG TAB PO SCH (21:26)
[2019-06-13 02:55] VITALS: BP 149/70; PULSE 64; RESP 16
[2019-06-13] MEDS: CEFTRIAXONE 2 GM/50 ML (PMX) 50 ML IVPB SCH (03:04)
[2019-06-13] MEDS: PANTOPRAZOLE (EC) 40 MG TAB PO SCH (06:18)
[2019-06-13] MEDS: SOD CHLORIDE 0.9% 1,000 ML IV SCH ×2 (07:22→12:17)
[2019-06-13] MEDS: INSULIN ASPART [NOVOLOG] 3 ML PEN SC SCH ×7 (08:00→20:32)
[2019-06-13 08:09] VITALS: BP 129/70; PULSE 70; RESP 17
[2019-06-13] MEDS: LOSARTAN 50 MG TAB PO SCH (08:10)
[2019-06-13] MEDS: LACTOBACILLUS RHAMNOSUS CAP PO SCH ×2 (08:10→20:30)
[2019-06-13] MEDS: INSULIN GLARGINE [LANTus] (100 UNITS/ML) SYG SC SCH (08:13)
--- NOTE | 2019-06-13 08:14 | CONS ---
Consult Date/Type/Reason Admit Date/Time Jun 11, 2019 at 05:20 Initial Consult Date 06/11/19 Type of Consultation: Urology Reason for Consultation Right renal stone and urinary tract infection Requesting Provider: DEBBIE WALLACE Date/Time of Note DATE: 06/13/19 TIME: 08:11 Subjective Patient states that she has no pain and no dysuria. No nausea or vomiting Objective Vitals Vital Signs Date Temp Pulse Resp B/P (MAP) Pulse Ox O2 O2 Flow FiO2 Time Delivery Rate 06/13/19 98.6 70 17 129/70 95 Room Air 08:09 (89) Intake and Output 06/12/19 06/12/19 06/13/19 1414:59 22:59 06:59 IntakeIntake Total 1100 ml 1360 ml 650 ml OutputOutput Total 400 ml BalanceBalance 700 ml 1360 ml 650 ml Exam Abdomen is soft and there is no flank tenderness. Urine culture growing 100,000 gram-negative rods sensitivity is pending Results/Medications Result Diagram: 06/12/19 0513 06/12/19 0513 Results 24 hrs Laboratory Tests Test 06/12/19 11:56 06/12/19 17:05 06/12/19 21:20 06/13/19 02:17 Bedside Glucose 203 155 197 191 Test 06/13/19 07:47 Bedside Glucose 135 Home Meds Reported Medications Sitagliptin* (Januvia*) 100 Mg Tablet, 100 MG PO DAILY, #30 TAB 06/11/19 Amiodarone Hcl* (Amiodarone Hcl*) 200 Mg Tablet, 200 MG PO DAILY, #30 TAB 06/11/19 Losartan Potassium* (Losartan Potassium*) 50 Mg Tablet, 50 MG PO DAILY, TAB 06/11/19 Pravastatin Sodium* (Pravastatin Sodium*) 20 Mg Tablet, 20 MG PO HS, TAB 06/11/19 Omeprazole* (Omeprazole*) 20 Mg Capsule.dr, 20 MG PO DAILY, #30 CAP 06/11/19 Metformin Hcl* (Metformin Hcl*) 1,000 Mg Tablet, 1000 MG PO WITH BREAKFAST DINNE, #60 TAB 06/11/19 Glipizide* (Glipizide*) 10 Mg Tablet, 10 MG PO BID, TAB 06/11/19 Medications Current Medications Sodium Chloride 1,000 ml @ 100 mls/hr Q10H IV Last administered on 06/12/19 22:49; Admin Dose 100 MLS/HR; Start 06/11/19 at 05:22 IV Flush (NS 3 ml) 3 ml PER PROTOCOL IV ; Start 06/11/19 at 05:30 Ondansetron HCl (Zofran Inj) 4 mg Q6H PRN IV NAUSEA/VOMITING Last administered on 06/12/19 08:29; Admin Dose 4 MG; Start 06/11/19 at 05:30 Acetaminophen (Tylenol Tab) 650 mg Q6H PRN PO .PAIN 1-3 OR TEMP Last administered on 06/12/19 08:27; Admin Dose 650 MG; Start 06/11/19 at 05:30 Hydromorphone HCl (Dilaudid) 0.5 mg Q4H PRN IV .SEVERE PAIN 7-10 Last administered on 06/11/19 09:18; Admin Dose 0.5 MG; Start 06/11/19 at 05:30 Docusate Sodium (Colace) 100 mg Q12H PRN PO .CONSTIPATION; Start 06/11/19 at 05:30 Bisacodyl (Dulcolax) 5 mg DAILY PRN PO .CONSTIPATION; Start 06/11/19 at 05:30 Ceftriaxone Sodium 50 ml @ 100 mls/hr Q24H IVPB Last administered on 06/13/19 03:04; Admin Dose 100 MLS/HR; Start 06/12/19 at 03:00 Losartan Potassium (Cozaar) 50 mg DAILY PO Last administered on 06/12/19 08:17; Admin Dose 50 MG; Start 06/11/19 at 09:00 Pantoprazole (Protonix Tab) 40 mg DAILY@06 PO Last administered on 06/13/19 06:18; Admin Dose 40 MG; Start 06/11/19 at 09:00 Atorvastatin Calcium (Lipitor) 10 mg DAILY@21 PO Last administered on 06/12/19 21:26; Admin Dose 10 MG; Start 06/11/19 at 21:00 Insulin Glargine (Lantus) 11 units DAILY@0800 SC Last administered on 06/12/19 08:16; Admin Dose 11 UNITS; Start 06/11/19 at 16:30 Insulin Aspart (Novolog Insulin Pen) 4 unit WITH MEALS SC Last administered on 7/24/19at 17:07; Admin Dose 4 UNIT; Start 06/11/19 at 17:35 Lactobacillus Acidophilus/ Rhamnosus (Culturelle) 1 cap BID PO Last a dministered on 06/12/19at 21:26; Admin Dose 1 CAP; Start 06/11/19 at 21:00 Miscellaneous Information 1 ea NOTE XX ; Start 06/11/19 at 15:30 Glucose (Glutose) 15 gm Q15M PRN PO DECREASED GLUCOSE; Start 06/11/19 at 15:30 Glucose (Glutose) 22.5 gm Q15M PRN PO DECREASED GLUCOSE; Start 06/11/19 at 15:30 Dextrose (D50w Syringe) 25 ml Q15M PRN IV DECREASED GLUCOSE; Start 06/11/19 at 15:30 Dextrose (D50w Syringe) 50 ml Q15M PRN IV DECREASED GLUCOSE; Start 06/11/19 at 15:30 Glucagon (Glucagen) 1 mg Q15M PRN IM DECREASED GLUCOSE; Start 06/11/19 at 15:30 Glucose (Glutose) 15 gm Q15M PRN BUCCAL DECREASED GLUCOSE; Start 06/11/19 at 15:30 Insulin Aspart (Novolog Insulin Pen) NOVOLOG *MILD* ALGORITHM WITH MEALS BEDTIME SC Last administered on 06/12/19at 21:26; Admin Dose 1 UNIT; Start 06/11/19 at 21:00 Simethicone (Mylicon) 80 mg Q6H PRN PO DISTENSION/GAS/BLOATING Last administered on 06/13/19at 00:14; Admin Dose 80 MG; Start 06/13/19 at 00:00 Assessment/Plan Hospital Course (Demo Recall) 33-year-old female was visiting her in the hospital when she had severe right flank pain and abdominal cramps with nausea and vomiting. She went to the emergency room and had a CT scan that showed: 1. 2 cm nonobstructing right renal pelvis calcified calculus. No other calcified urinary calculi. No obstructive uropathy bilaterally. 2. Scattered focal areas of gas within the right pelvocaliceal system ureter and urinary bladder and rule out infection versus recent instrumentation. 3. 5 mm calcified gallstone within an otherwise contracted gallbladder. No biliary ductal dilation. 4. Hepatic fatty infiltration. Patient denies having prior history of kidney stone but she has had urinary tract infections Patient is feeling better today. She has no pain and is voiding well. Urine culture is showing 100,000 colony per mL of gram-negative rods. Her white count has come down to normal. Once we get the sensitivity of the urine culture then we could determine what antibiotic to put her on and then she may be discharged home on antibiotic and follow-up with her primary care doctor and the urologist who is contracted with her medical group. JUNIOR DENT MD Jun 13, 2019 08:14
[2019-06-13] MEDS: HYDROmorphONE 0.5 MG/0.5 ML SYG IV PRN (12:23)
[2019-06-13 14:00] VITALS: BP 140/80; PULSE 75; RESP 19
--- NOTE | 2019-06-13 15:09 | PN ---
Date/Time of Note Date/Time of Note DATE: 06/13/19 TIME: 15:06 Assessment/Plan VTE Prophylaxis Risk score (from Nsg)>0 risk: 2 SCD applied (from Nsg): Yes Pharmacological prophylaxis: NA/contraindicated Pharm contraindication: low risk/ambulating Lines/Catheters IV Catheter Type (from Nrsg): Peripheral IV Urinary Cath still in place: No Assessment/Plan Hospital Course SUBJECTIVE: No acute distress. OBJECTIVE: Vital signs-see below PHYSICAL EXAM: Constitutional: Adequately built,not in acute distress. HEENT: Head atraumatic and normocephalic. Eyes: Extraocular muscles intact. Anicteric sclerae. Pupils equal bilaterally, reactive to light. NECK: Supple without lymph node. CHEST: Clear and good breath sounds equally. No wheezing. No rhonchi. HEART: S1, S2. Regular rate and rhythm. ABDOMEN: Soft/non tender with no rebound tenderness. Bowel sounds were present. EXTREMITIES: No cyanosis, clubbing or edema. NEUROLOGIC: Alert and oriented x3. No focal deficit. No sensory deficit. PSYCHOSOCIAL: No signs of depression. INTEGUMENTARY: No open wounds. ASSESSMENT AND PLAN:63-year-old female admitted with right-sided flank pain with nausea/vomiting, found to have UTI. ESBL UTI. Start meropenem. Anticipate discharge on IV Invanz x2 weeks. DMII -Stable. Basal/bolus insulin HTN -Controlled. Continue antihypertensives Prophylaxis: SCDs/PPI Disposition: DC planning with IV Invanz x2 weeks likely in a.m. Case management to arrange home health. Patient was seen in collaboration with Dr. Castro. Result Diagram: 06/12/19 0513 06/12/19 0513 Results 24hrs Laboratory Tests Test 06/12/19 17:05 06/12/19 21:20 06/13/19 02:17 06/13/19 07:47 Bedside Glucose 155 197 191 135 Test 06/13/19 11:56 Bedside Glucose 181 Exam/Review of Systems Exam Vitals Vital Signs Date Temp Pulse Resp B/P (MAP) Pulse Ox O2 O2 Flow FiO2 Time Delivery Rate 06/13/19 98.6 70 17 129/70 95 Room Air 08:09 (89) Intake and Output 06/12/19 06/12/19 06/13/19 1414:59 22:59 06:59 IntakeIntake Total 1100 ml 1360 ml 650 ml OutputOutput Total 400 ml BalanceBalance 700 ml 1360 ml 650 ml Results Results 24hrs Laboratory Tests Test 06/12/19 17:05 06/12/19 21:20 06/13/19 02:17 06/13/19 07:47 Bedside Glucose 155 197 191 135 Test 06/13/19 11:56 Bedside Glucose 181 Medications Medication Current Medications IV Flush (NS 3 ml) 3 ml PER PROTOCOL IV ; Start 06/11/19 at 05:30 Ondansetron HCl (Zofran Inj) 4 mg Q6H PRN IV NAUSEA/VOMITING Last administered on 06/12/19 08:29; Admin Dose 4 MG; Start 06/11/19 at 05:30 Acetaminophen (Tylenol Tab) 650 mg Q6H PRN PO .PAIN 1-3 OR TEMP Last administered on 06/12/19 08:27; Admin Dose 650 MG; Start 06/11/19 at 05:30 Hydromorphone HCl (Dilaudid) 0.5 mg Q4H PRN IV .SEVERE PAIN 7-10 Last administered on 06/13/19at 12:23; Admin Dose 0.5 MG; Start 06/11/19 at 05:30 Docusate Sodium (Colace) 100 mg Q12H PRN PO .CONSTIPATION; Start 06/11/19 at 05:30 Bisacodyl (Dulcolax) 5 mg DAILY PRN PO .CONSTIPATION; Start 06/11/19 at 05:30 Losartan Potassium (Cozaar) 50 mg DAILY PO Last administered on 06/13/19 08:10; Admin Dose 50 MG; Start 06/11/19 at 09:00 Pantoprazole (Protonix Tab) 40 mg DAILY@06 PO Last administered on 06/13/19 06:18; Admin Dose 40 MG; Start 06/11/19 at 09:00 Atorvastatin Calcium (Lipitor) 10 mg DAILY@21 PO Last administered on 06/12/19 21:26; Admin Dose 10 MG; Start 06/11/19 at 21:00 Insulin Glargine (Lantus) 11 units DAILY@0800 SC Last administered on 06/13/19at 08:13; Admin Dose 11 UNITS; Start 06/11/19 at 16:30 Insulin Aspart (Novolog Insulin Pen) 4 unit WITH MEALS SC Last administered on 06/13/19at 12:15; Admin Dose 4 UNIT; Start 06/11/19 at 17:35 Lactobacillus Acidophilus/ Rhamnosus (Culturelle) 1 cap BID PO Last administered on 06/13/19at 08:10; Admin Dose 1 CAP; Start 06/11/19 at 21:00 Miscellaneous Information 1 ea NOTE XX ; Start 06/11/19 at 15:30 Glucose (Glutose) 15 gm Q15M PRN PO DECREASED GLUCOSE; Start 06/11/19 at 15:30 Glucose (Glutose) 22.5 gm Q15M PRN PO DECREASED GLUCOSE; Start 06/11/19 at 15:30 Dextrose (D50w Syringe) 25 ml Q15M PRN IV DECREASED GLUCOSE; Start 06/11/19 at 15:30 Dextrose (D50w Syringe) 50 ml Q15M PRN IV DECREASED GLUCOSE; Start 06/11/19 at 15:30 Glucagon (Glucagen) 1 mg Q15M PRN IM DECREASED GLUCOSE; Start 06/11/19 at 15:30 Glucose (Glutose) 15 gm Q15M PRN BUCCAL DECREASED GLUCOSE; Start 06/11/19 at 15:30 Insulin Aspart (Novolog Insulin Pen) NOVOLOG *MILD* ALGORITHM WITH MEALS BEDTIME SC Last administered on 06/13/19at 12:16; Admin Dose 2 UNIT; Start 06/11/19 at 21:00 Simethicone (Mylicon) 80 mg Q6H PRN PO DISTENSION/GAS/BLOATING Last administ ered on 06/13/19at 00:14; Admin Dose 80 MG; Start 06/13/19 at 00:00 Meropenem/Sodium Chloride 50 ml @ 100 mls/hr Q12 IVPB ; Start 06/13/19 at 14:36 ARCADIO YOUNG NP Jun 13, 2019 15:09
[2019-06-13] MEDS: MEROPENEM 1 GM/50ML(PMX) 50 ML IVPB SCH ×2 (16:19→23:38)
[2019-06-13 20:00] VITALS: BP 125/69; PULSE 75; RESP 18
[2019-06-13] MEDS: ATORVASTATIN 10 MG TAB PO SCH (20:30)
[2019-06-13] MEDS: ACETAMINOPHEN 325 MG TAB PO PRN (23:42)
[2019-06-14 01:52] VITALS: BP 145/76; PULSE 85; RESP 19
--- NOTE | 2019-06-14 02:31 | EN ---
Date/Time of Note Date/Time of Note DATE: 06/14/19 TIME: 02:30 Event Note Medicine Medicine Event Note RR note/Code stroke Patient reported dizzyness and left sided weakness Patient was visiting her in the ICU and started noticing herself become dizzy at approximately 1:18 AM. She was brought back to her room. In her room she felt continue to feel dizzy and she also reported left upper and lower extremity weakness and decreased left hand motorcycle designer strength. I came in and examined the patient at the bedside. There did appear to be decreased left hand strength compared to the right. There also did appear to be decreased strength of the left upper and lower extremity compared to the right. Patient did not appear to have any speech abnormalities. No signs of pronator drift. No facial asymmetry. Cranial nerves II through XII were intact. Stat CT of the brain was ordered and patient was taken down. Vitals: Heart rate 70 blood pressure 180/78 SPO2 100% on room air respirations 18 General: Patient currently lying in bed does not appear to be in any acute distress CVS: Regular rate rhythm Lungs: Clear to auscultation bilaterally Neuro: Alert and oriented x4, speech is normal, decreased motorcycle designer strength and motor strength noted of the left upper and lower extremity compared to the right. No pronator drift. Stat CT of the brain:1. Negative noncontrast CT brain for acute infarct. 2. Scattered small bilateral cerebral calcifications. Findings most likely have an infectious/inflammatory etiology, consider neurocysticercosis. Upon return from CT of the brain study patient's neurological exam did begin to improve. The weakness did improve as well. The telemetry neurologist saw and evaluated the patient. His recommendation was that based on the improvement of the symptoms that this episode did not seem like a vascular process such as a stroke. His recommendation was to continue close monitoring. Assessment and plan: #1 left-sided weakness: TIA or CVA versus other. At the current time we will transfer the patient to telemetry. Will perform neuro checks every 4 hours. Permissive hypertension for the first 24 hours. Will give an aspirin 162 milligrams p.o. x1. Will monitor patient closely Greater than 45 minutes of critical care time spent on the care management this patient. DEBBIE WALLACE Jun 14, 2019 02:31
[2019-06-14] MEDS ORDERED: ASPIRIN 81 MG TAB PO ONE (03:00)
[2019-06-14] MEDS ORDERED: hydrALAzine 20 MG INJ IV PRN (03:00)
--- NOTE | 2019-06-14 03:02 | STROKE ---
Date/Time of Note Date/Time of Note DATE: 06/14/19 TIME: 04:54 Patient Information General Patient location: inpatient Arrival Date Age 63 Gender female Weight 71.5 kg POC Glucose Glucose Result Bedside Glucose - 72 Hours Test 06/11/19 09:15 06/11/19 11:57 06/11/19 17:07 06/11/19 21:02 Bedside 138 183 138 111 Glucose mg/dL (70-220) mg/dL (70-220) mg/dL (70-220) mg/dL (70-220) Test 06/12/19 08:01 06/12/19 11:56 06/12/19 17:05 06/12/19 21:20 Bedside 111 203 155 197 Glucose mg/dL (70-220) mg/dL (70-220) mg/dL (70-220) mg/dL (70-220) Test 06/13/19 02:17 06/13/19 07:47 06/13/19 11:56 06/13/19 17:39 Bedside 191 135 181 106 Glucose mg/dL (70-220) mg/dL (70-220) mg/dL (70-220) mg/dL (70-220) Test 06/13/19 20:31 06/14/19 02:06 Bedside 116 202 Glucose mg/dL (70-220) mg/dL (70-220) Vital Signs Vital Signs Vital Signs Date Temp Pulse Resp B/P (MAP) Pulse Ox O2 O2 Flow FiO2 Time Delivery Rate 06/14/19 97.9 85 19 145/76 93 Room Air 01:52 (99) Patient History Current Medications Allergies: Coded Allergies: No Known Drug Allergies (Verified Allergy, Unknown, 06/11/19) History & Physical History of Present Illness 63yo woman h/o HTN, DM admitted for sepsis, kidney stones consulted for acute stroke. Onset 1:18am, felt dizzy with left sided weakness. Was visiting her who also had been hospitalized earlier. Denies any headache. Feels markedly improved since sx onset NIH Stroke Scale NIH Stroke Scale [id number] l4d LOC Questions: Fpooc9v LOC Commands: Koybj8k ual: Ekxuj4j alsy: Hngru5d rm - Left: Qtdbb7t ight: Pgiwu7r eft: Ejjzj9i ight: Wnrtm2q Phkmh6p Raoee7o Ehpuz9j daisy: Dqgpp8l Zhbae2a 4Bd Total Score: Bdkhb3w Date/Time Recorded DATE: 06/14/19 TIME: 04:54 Submitted By Deandre Martinez Imaging Review Imaging Reviewed: Yes Date/Time Imaging Reviewed DATE: 06/14/19 TIME: 04:54 Imaging Findings No acute process. Scatttered Ca++. no clear associated edema with Ca++ t-PA Administration Recommendation: No Weight 71.5 kg Recommedation submitted by Deandre Fontaine Reason t-PA not Recommended NIHSS 0. Recommendations Recommendation NIHSS 0 . Weakness markedly resolving. While patient is initially slow a bit to move left side, appears able to move well. Additionally, she does not have a type of weakness secondary to a stroke. Her exam lacks drift. Also, it does not show topography of weakness typical of a stroke, such as flexor>extensor weakness in LLE. This makes it less suspicious for an acute vascular process. Imaging with no acute process. Has scattered Ca++ yet no clear associated edema, so, low suspicion for an acute infectious process. Can clinically monitor for now regarding neurologic status. Should symptoms fluctuate, can consider pursuing advanced imaging at that time. DEANDRE FONTAINE Jun 14, 2019 03:02
[2019-06-14 03:24] VITALS: BP 184/83; PULSE 78; RESP 19
[2019-06-14] MEDS: PANTOPRAZOLE (EC) 40 MG TAB PO SCH (06:03)
[2019-06-14 07:32] VITALS: BP 133/86; PULSE 80; RESP 20
[2019-06-14] MEDS: MEROPENEM 1 GM/50ML(PMX) 50 ML IVPB SCH ×2 (08:26→21:34)
[2019-06-14] MEDS: LACTOBACILLUS RHAMNOSUS CAP PO SCH ×2 (08:27→21:33)
[2019-06-14] MEDS: INSULIN ASPART [NOVOLOG] 3 ML PEN SC SCH ×7 (08:52→21:00)
[2019-06-14] MEDS: INSULIN GLARGINE [LANTus] (100 UNITS/ML) SYG SC SCH (08:52)
[2019-06-14 10:57] VITALS: BP 136/78; PULSE 82; RESP 20
[2019-06-14] MEDS ORDERED: ATORVASTATIN 80 MG TAB PO ONE (11:00)
--- NOTE | 2019-06-14 11:20 | PN ---
Date/Time of Note Date/Time of Note DATE: 06/14/19 TIME: 11:18 Assessment/Plan VTE Prophylaxis Risk score (from Ns)>0 risk: 2 SCD applied (from Ns): Yes Pharmacological prophylaxis: NA/contraindicated Pharm contraindication: low risk/ambulating Lines/Catheters IV Catheter Type (from Nrsg): Mid Line Urinary Cath still in place: No Assessment/Plan Hospital Course SUBJECTIVE: Patient had transient left-sided weakness while she was visiting her who is admitted in our ICU. Currently patient is back to her normal. No further weakness reported. Ambulating in room, no speech difficulties, vision changes or any focal deficit. OBJECTIVE: Vital signs-see below PHYSICAL EXAM: Constitutional: Adequately built,not in acute distress. HEENT: Head atraumatic and normocephalic. Eyes: Extraocular muscles intact. Anicteric sclerae. Pupils equal bilaterally, reactive to light. NECK: Supple without lymph node. CHEST: Clear and good breath sounds equally. No wheezing. No rhonchi. HEART: S1, S2. Regular rate and rhythm. ABDOMEN: Soft/non tender with no rebound tenderness. Bowel sounds were present. EXTREMITIES: No cyanosis, clubbing or edema. NEUROLOGIC: Alert and oriented x3. No focal deficit. No sensory deficit. PSYCHOSOCIAL: No signs of depression. INTEGUMENTARY: No open wounds. ASSESSMENT AND PLAN:63-year-old female admitted with right-sided flank pain with nausea/vomiting, found to have UTI. ESBL UTI. Start meropenem. Anticipate discharge on IV Invanz x2 weeks. DMII -slight too tight control.. Basal/bolus insulin-titrate down HTN -Controlled. Continue antihypertensives Transient left-sided weakness, likely hypertension/DM related neuropathy vs possible TIA -Symptoms completely resolved. Pending MRI -Aspirin/statin until CVA work-up is completed and ruled out. -PT eval -Add lipid panel Prophylaxis: SCDs/PPI Disposition: If MRI negative for stroke, DC planning in a.m. with 2 weeks IV antibiotics which has been arranged. Patient was seen in collaboration with Dr. Castro. Result Diagram: 06/14/1921806/14/19218 Results 24hrs Laboratory Tests Test 06/13/19 11:56 06/13/19 17:39 06/13/19 20:31 06/14/19 02:06 Bedside Glucose 181 106 116 202 Test 06/14/19 02:19 06/14/19 08:06 White Blood Count 6.5 # Red Blood Count 4.38 Hemoglobin 12.9 Hematocrit 39.7 Mean Corpuscular 90.6 Volume Mean Corpuscular 29.5 Hemoglobin Mean Corpuscular 32.5 Hemoglobin Concent Red Cell 12.9 Distribution Width Platelet Count 340 # Mean Platelet Volume 9.7 Immature 0.300 Granulocytes % Neutrophils % 50.0 Lymphocytes % 38.5 Monocytes % 9.0 Eosinophils % 1.7 Basophils % 0.5 Nucleated Red Blood 0.0 Cells % Immature 0.020 Granulocytes # Neutrophils # 3.3 Lymphocytes # 2.5 Monocytes # 0.6 Eosinophils # 0.1 Basophils # 0.0 Nucleated Red Blood 0.0 Cells # Prothrombin Time 12.3 Prothrombin Time 1.0 Ratio INR International 0.90 Normalized Ratio Activated 28.8 Partial Thromboplast Time Sodium Level 139 Potassium Level 3.6 Chloride Level 103 Carbon Dioxide Level 28 Anion Gap 8 Blood Urea Nitrogen 6 L Creatinine 0.60 Est Glomerular > 60 Filtrat Rate mL/min Glucose Level 194 Calcium Level 9.3 Bedside Glucose 153 Exam/Review of Systems Exam Vitals Vital Signs Date Temp Pulse Resp B/P (MAP) Pulse Ox O2 O2 Flow FiO2 Time Delivery Rate 06/14/19 98.4 82 20 136/78 96 Room Air 10:57 (97) Intake and Output 06/13/19 06/13/19 06/14/19 1515:00 23:00 07:00 IntakeIntake Total 1110 ml 450 ml 240 ml OutputOutput Total 4550 ml 1100 ml BalanceBalance -3440 ml -650 ml 240 ml Results Results 24hrs Laboratory Tests Test 06/13/19 11:56 06/13/19 17:39 06/13/19 20:31 06/14/19 02:06 Bedside Glucose 181 106 116 202 Test 06/14/19 02:19 06/14/19 08:06 White Blood Count 6.5 # Red Blood Count 4.38 Hemoglobin 12.9 Hematocrit 39.7 Mean Corpuscular 90.6 Volume Mean Corpuscular 29.5 Hemoglobin Mean Corpuscular 32.5 Hemoglobin Concent Red Cell 12.9 Distribution Width Platelet Count 340 # Mean Platelet Volume 9.7 Immature 0.300 Granulocytes % Neutrophils % 50.0 Lymphocytes % 38.5 Monocytes % 9.0 Eosinophils % 1.7 Basophils % 0.5 Nucleated Red Blood 0.0 Cells % Immature 0.020 Granulocytes # Neutrophils # 3.3 Lymphocytes # 2.5 Monocytes # 0.6 Eosinophils # 0.1 Basophils # 0.0 Nucleated Red Blood 0.0 Cells # Prothrombin Time 12.3 Prothrombin Time 1.0 Ratio INR International 0.90 Normalized Ratio Activated 28.8 Partial Thromboplast Time Sodium Level 139 Potassium Level 3.6 Chloride Level 103 Carbon Dioxide Level 28 Anion Gap 8 Blood Urea Nitrogen 6 L Creatinine 0.60 Est Glomerular > 60 Filtrat Rate mL/min Glucose Level 194 Calcium Level 9.3 Bedside Glucose 153 Medications Medication Current Medications IV Flush (NS 3 ml) 3 ml PER PROTOCOL IV ; Start 06/11/19 at 05:30 Ondansetron HCl (Zofran Inj) 4 mg Q6H PRN IV NAUSEA/VOMITING Last administered on 06/12/19 08:29; Admin Dose 4 MG; Start 06/11/19 at 05:30 Acetaminophen (Tylenol Tab) 650 mg Q6H PRN PO .PAIN 1-3 OR TEMP Last administered on 06/13/19at 23:42; Admin Dose 650 MG; Start 06/11/19 at 05:30 Hydromorphone HCl (Dilaudid) 0.5 mg Q4H PRN IV .SEVERE PAIN 7-10 Last administered on 06/13/19at 12:23; Admin Dose 0.5 MG; Start 06/11/19 at 05:30 Docusate Sodium (Colace) 100 mg Q12H PRN PO .CONSTIPATION; Start 06/11/19 at 05:30 Bisacodyl (Dulcolax) 5 mg DAILY PRN PO .CONSTIPATION; Start 06/11/19 at 05:30 Losartan Potassium (Cozaar) 50 mg DAILY PO Last administered on 06/13/19 08:10; Admin Dose 50 MG; Start 06/11/19 at 09:00; Status Hold Pantoprazole (Protonix Tab) 40 mg DAILY@06 PO Last administered on 06/14/19 06:03; Admin Dose 40 MG; Start 06/11/19 at 09:00 Atorvastatin Calcium (Lipitor) 10 mg DAILY@21 PO Last administered on 06/13/19 20:30; Admin Dose 10 MG; Start 06/11/19 at 21:00 Insulin Glargine (Lantus) 11 units DAILY@0800 SC Last administered on 06/14/19at 08:52; Admin Dose 11 UNITS; Start 06/11/19 at 16:30 Insulin Aspart (Novolog Insulin Pen) 4 unit WITH MEALS SC Last administered on 06/14/19at 08:52; Admin Dose 4 UNIT; Start 06/11/19 at 17:35 Lactobacillus Acidophilus/ Rhamnosus (Culturelle) 1 cap BID PO Last administered on 06/14/19at 08:27; Admin Dose 1 CAP; Start 06/11/19 at 21:00 Miscellaneous Information 1 ea NOTE XX ; Start 06/11/19 at 15:30 Glucose (Glutose) 15 gm Q15M PRN PO DECREASED GLUCOSE; Start 06/11/19 at 15:30 Glucose (Glutose) 22.5 gm Q15M PRN PO DECREASED GLUCOSE; Start 06/11/19 at 15:30 Dextrose (D50w Syringe) 25 ml Q15M PRN IV DECREASED GLUCOSE; Start 06/11/19 at 15:30 Dextrose (D50w Syringe) 50 ml Q15M PRN IV DECREASED GLUCOSE; Start 06/11/19 at 15:30 Glucagon (Glucagen) 1 mg Q15M PRN IM DECREASED GLUCOSE; Start 06/11/19 at 15:30 Glucose (Glutose) 15 gm Q15M PRN BUCCAL DECREASED GLUCOSE; Start 06/11/19 at 15:30 Insulin Aspart (Novolog Insulin Pen) NOVOLOG *MILD* ALGORITHM WITH MEALS BEDTIME SC Last administered on 06/14/19at 08:53; Admin Dose 1 UNIT; Start 06/11/19 at 21:00 Simethicone (Mylicon) 80 mg Q6H PRN PO DISTENSION/GAS/BLOATING Last administered on 06/13/19at 17:45; Admin Dose 80 MG; Start 06/13/19 at 00:00 Meropenem/Sodium Chloride 50 ml @ 100 mls/hr Q12 IVPB Last administered on 06/14/19at 08:26; Admin Dose 100 MLS/HR; Start 06/13/19 at 14:36 Hydralazine HCl (Apresoline) 10 mg Q4H PRN IV ELEVATED BLOOD PRESSURE; Start 06/14/19 at 03:00 Aspirin (Aspirin) 81 mg DAILY PO ; Start 06/15/19 at 09:00 Atorvastatin Calcium (Lipitor) 80 mg HS PO ; Start 06/15/19 at 21:00 ARCADIO YOUNG NP Jun 14, 2019 11:20
[2019-06-14 15:18] VITALS: BP 148/77; PULSE 75; RESP 20
[2019-06-14 19:46] VITALS: BP 123/65; PULSE 75; RESP 19
[2019-06-14] MEDS: ATORVASTATIN 10 MG TAB PO SCH (21:33)
[2019-06-14] MEDS: ACETAMINOPHEN 325 MG TAB PO PRN (21:55)
[2019-06-15] VITALS: BP 154/75; PULSE 71; RESP 19
[2019-06-15 04:00] VITALS: BP 107/64; PULSE 67; RESP 19
[2019-06-15] MEDS: PANTOPRAZOLE (EC) 40 MG TAB PO SCH (06:10)
[2019-06-15] MEDS: INSULIN ASPART [NOVOLOG] 3 ML PEN SC SCH ×6 (07:55→17:35)
[2019-06-15 08:08] VITALS: BP 153/82; PULSE 77
[2019-06-15] MEDS: MEROPENEM 1 GM/50ML(PMX) 50 ML IVPB SCH (08:22)
[2019-06-15] MEDS: LACTOBACILLUS RHAMNOSUS CAP PO SCH (08:22)
[2019-06-15] MEDS: INSULIN GLARGINE [LANTus] (100 UNITS/ML) SYG SC SCH (08:44)
[2019-06-15] MEDS ORDERED: ASPIRIN 81 MG TAB PO SCH (09:00)
[2019-06-15 11:21] VITALS: BP 156/98; PULSE 81; RESP 18
--- NOTE | 2019-06-15 12:34 | CONS ---
Consult Date/Type/Reason Admit Date/Time Jun 11, 2019 at 05:20 Initial Consult Date 06/11/19 Type of Consultation: Urology Reason for Consultation Right renal stone and urinary tract infection with E. coli ESBL Requesting Provider: DEBBIE WALLACE Date/Time of Note DATE: 06/15/19 TIME: 12:31 Subjective The patient is feeling comfortable now and asking when she would be going home. However she did have an incident yesterday when she went to visit her in the intensive care unit and she did have some weakness and she was checked for a stroke. Presently she is able to move all of her extremities and she does not have any speech impairment. She denies any flank tenderness and no dysuria Objective Vitals Vital Signs Date Temp Pulse Resp B/P (MAP) Pulse Ox O2 O2 Flow FiO2 Time Delivery Rate 06/15/19 98.8 81 18 156/98 95 Nasal 11:21 (117) Cannula Intake and Output 06/14/19 06/14/19 06/15/19 1515:00 23:00 07:00 IntakeIntake Total 770 ml 300 ml 600 ml BalanceBalance 770 ml 300 ml 600 ml Exam Abdomen is soft and there is no flank tenderness Results/Medications Result Diagram: 06/14/19 0219 06/14/19 0219 Results 24 hrs Laboratory Tests Test 06/14/19 17:36 06/14/19 21:37 06/15/19 05:45 06/15/19 07:47 Bedside Glucose 277 H 153 175 Triglycerides Level 81 Cholesterol Level 128 LDL Cholesterol, 61 Calculated HDL Cholesterol 51 Cholesterol/HDL 2.5 Ratio Test 06/15/19 11:48 Bedside Glucose 229 H Home Meds Reported Medications Sitagliptin* (Januvia*) 100 Mg Tablet, 100 MG PO DAILY, #30 TAB 06/11/19 Amiodarone Hcl* (Amiodarone Hcl*) 200 Mg Tablet, 200 MG PO DAILY, #30 TAB 06/11/19 Losartan Potassium* (Losartan Potassium*) 50 Mg Tablet, 50 MG PO DAILY, TAB 06/11/19 Pravastatin Sodium* (Pravastatin Sodium*) 20 Mg Tablet, 20 MG PO HS, TAB 06/11/19 Omeprazole* (Omeprazole*) 20 Mg Capsule.dr, 20 MG PO DAILY, #30 CAP 06/11/19 Metformin Hcl* (Metformin Hcl*) 1,000 Mg Tablet, 1000 MG PO WITH BREAKFAST DINNE, #60 TAB 06/11/19 Glipizide* (Glipizide*) 10 Mg Tablet, 10 MG PO BID, TAB 06/11/19 Medications Current Medications IV Flush (NS 3 ml) 3 ml PER PROTOCOL IV ; Start 06/11/19 at 05:30 Ondansetron HCl (Zofran Inj) 4 mg Q6H PRN IV NAUSEA/VOMITING Last administered on 06/12/19 08:29; Admin Dose 4 MG; Start 06/11/19 at 05:30 Acetaminophen (Tylenol Tab) 650 mg Q6H PRN PO .PAIN 1-3 OR TEMP Last administered on 06/14/19 21:55; Admin Dose 650 MG; Start 06/11/19 at 05:30 Hydromorphone HCl (Dilaudid) 0.5 mg Q4H PRN IV .SEVERE PAIN 7-10 Last administered on 06/13/19 12:23; Admin Dose 0.5 MG; Start 06/11/19 at 05:30 Docusate Sodium (Colace) 100 mg Q12H PRN PO .CONSTIPATION Last administered on 06/14/19 21:33; Admin Dose 100 MG; Start 06/11/19 at 05:30 Bisacodyl (Dulcolax) 5 mg DAILY PRN PO .CONSTIPATION; Start 06/11/19 at 05:30 Losartan Potassium (Cozaar) 50 mg DAILY PO Last administered on 06/13/19 08:10; Admin Dose 50 MG; Start 06/11/19 at 09:00; Status Hold Pantoprazole (Protonix Tab) 40 mg DAILY@06 PO Last administered on 06/15/19 06:10; Admin Dose 40 MG; Start 06/11/19 at 09:00 Atorvastatin Calcium (Lipitor) 10 mg DAILY@21 PO Last administered on 06/14/19 21:33; Admin Dose 10 MG; Start 06/11/19 at 21:00 Insulin Glargine (Lantus) 11 units DAILY@0800 SC Last administered on 06/15/19 08:44; Admin Dose 11 UNITS; Start 06/11/19 at 16:30 Lactobacillus Acidophilus/ Rhamnosus (Culturelle) 1 cap BID PO Last administered on 7/27/19at 08:22; Admin Dose 1 CAP; Start 06/11/19 at 21:00 Miscellaneous Information 1 ea NOTE XX ; Start 06/11/19 at 15:30 Glucose (Glutose) 15 gm Q15M PRN PO DECREASED GLUCOSE; Start 06/11/19 at 15:30 Glucose (Glutose) 22.5 gm Q15M PRN PO DECREASED GLUCOSE; Start 06/11/19 at 15:30 Dextrose (D50w Syringe) 25 ml Q15M PRN IV DECREASED GLUCOSE; Start 06/11/19 at 15:30 Dextrose (D50w Syringe) 50 ml Q15M PRN IV DECREASED GLUCOSE; Start 06/11/19 at 15:30 Glucagon (Glucagen) 1 mg Q15M PRN IM DECREASED GLUCOSE; Start 06/11/19 at 15:30 Glucose (Glutose) 15 gm Q15M PRN BUCCAL DECREASED GLUCOSE; Start 06/11/19 at 15:30 Insulin Aspart (Novolog Insulin Pen) NOVOLOG *MILD* ALGORITHM WITH MEALS BEDTIME SC Last administered on 06/15/19at 11:57; Admin Dose 3 UNIT; Start 06/11/19 at 21:00 Simethicone (Mylicon) 80 mg Q6H PRN PO DISTENSION/GAS/BLOATING Last administered on 06/13/19at 17:45; Admin Dose 80 MG; Start 06/13/19 at 00:00 Meropenem/Sodium Chloride 50 ml @ 100 mls/hr Q12 IVPB Last administered on 06/15/19at 08:22; Admin Dose 100 MLS/HR; Start 06/13/19 at 14:36 Hydralazine HCl (Apresoline) 10 mg Q4H PRN IV ELEVATED BLOOD PRESSURE; Start 06/14/19 at 03:00 Aspirin (Aspirin) 81 mg DAILY PO Last administered on 06/15/19at 08:22; Admin Dose 81 MG; Start 06/15/19 at 09:00 Atorvastatin Calcium (Lipitor) 80 mg HS PO ; Start 06/15/19 at 21:00 Insulin Aspart (Novolog Insulin Pen) 3 unit WITH MEALS SC Last administered on 06/15/19at 11:55; Admin Dose 3 UNIT; Start 06/14/19 at 11:50 Assessment/Plan Hospital Course (Demo Recall) 33-year-old female was visiting her in the hospital when she had severe right flank pain and abdominal cramps with nausea and vomiting. She went to the emergency room and had a CT scan that showed: 1. 2 cm nonobstructing right renal pelvis calcified calculus. No other calcified urinary calculi. No obstructive uropathy bilaterally. 2. Scattered focal areas of gas within the right pelvocaliceal system ureter and urinary bladder and rule out infection versus recent instrumentation. 3. 5 mm calcified gallstone within an otherwise contracted gallbladder. No biliary ductal dilation. 4. Hepatic fatty infiltration. Patient denies having prior history of kidney stone but she has had urinary tract infections She did have a question of a stroke last night but she is doing well now and she has no neurological deficit. She denies any flank pain and has no dysuria. She does have UTI with E. coli ESBL and a large right renal stone. Once her infection is treated then she may be discharged and see her primary care barbra funes who should refer her to the urologist contracted with her IPA. JUNIOR DENT MD Jun 15, 2019 12:34
--- NOTE | 2019-06-15 15:17 | DS ---
Date/Time of Note Date/Time of Note DATE: 06/15/19 TIME: 15:12 Discharge Summary Admission/Discharge Info Admit Date/Time Jun 11, 2019 at 05:20 Discharge Date/Time June 15, 2019 Discharge Diagnosis Left renal stone 2 cm in the renal pelvis without obstruction; ESBL E. coli UTI; diabetes mellitus type 2; cardiac dysrhythmia of unknown type on long-term amiodarone; essential hypertension; hyperlipidemia; neurocysticercosis; fatty liver Patient Condition: Fair Consults Urology-Dr. Claudio; infectious disease-Dr. Roman; neurology-Dr. Clinton Procedures Abdominal pelvic CT scan IMPRESSION: 1. 2 cm nonobstructing right renal pelvis calcified calculus. No other calcified urinary calculi. No obstructive uropathy bilaterally. 2. Scattered focal areas of gas within the right pelvocaliceal system ureter and urinary bladder and rule out infection versus recent instrumentation. 3. 5 mm calcified gallstone within an otherwise contracted gallbladder. No biliary ductal dilation. 4. Hepatic fatty infiltration. MRI scan brain IMPRESSION: 1. No evidence of acute infarct. 2. Mild chronic microvascular ischemic disease in the periventricular and deep white matter. 3. Bulbous appearance of the left supraclinoid ICA suspicious for an aneurysm. Recommend CTA or MRA brain for further evaluation. T scan brain IMPRESSION: 1. Negative noncontrast CT brain for acute infarct. 2. Scattered small bilateral cerebral calcifications. Findings most likely have an infectious/inflammatory etiology, consider neurocysticercosis. Hx of Present Illness Hx of Present Illness Chief complaint: Abdominal pain x1 day 63-year-old woman complains of diffuse abdominal pain and cramping x1 1 week with worsening over the last night. With a few episodes of clear nonbloody nonbilious emesis and loose stools. She does report subjective fevers. She has had no blood per rectum or melena, no hematemesis, no chest pain or shortness of breath. Patient has had prior section but no other abdominal surgeries, no dysuria, no weight loss, no complaints of chest pain or shortness of breath. HPI 63-year-old woman complains of diffuse abdominal pain and cramping x1 day with a few episodes of clear nonbloody nonbilious emesis and loose stools. She has had no blood per rectum or melena, no hematemesis, no fevers or chills, no chest pain or shortness of breath. Patient has had prior section but no other abdominal surgeries, no dysuria, no weight loss, no complaints of chest pain or shortness of breath Hx of Present Illness 33-year-old female was visiting her in the hospital when she had severe right flank pain and abdominal cramps with nausea and vomiting. She went to the emergency room and had a CT scan that showed: 1. 2 cm nonobstructing right renal pelvis calcified calculus. No other calcified urinary calculi. No obstructive uropathy bilaterally. 2. Scattered focal areas of gas within the right pelvocaliceal system ureter and urinary bladder and rule out infection versus recent instrumentation. 3. 5 mm calcified gallstone within an otherwise contracted gallbladder. No biliary ductal dilation. 4. Hepatic fatty infiltration. Hospital Course 63-year-old female who was admitted with intractable pain. It was initially suspect the pain was due to the stone however the stone is not obstructing. However the patient does have an E. coli ESBL urinary tract infection with findings to suggest pyelonephritis. He is on IV antibiotics using meropenem also known as Invanz. Will need of full 2-week course of this and then will need to have treatment of the stone since it is appropriate to consider sitter that the stone is likely to be infected and act as a source of continued troubles. However she will be stable to go home on antibiotics and then resume with her regular physicians. Home Meds Reported Medications Sitagliptin* (Januvia*) 100 Mg Tablet, 100 MG PO DAILY, #30 TAB 06/11/19 Amiodarone Hcl* (Amiodarone Hcl*) 200 Mg Tablet, 200 MG PO DAILY, #30 TAB 06/11/19 Losartan Potassium* (Losartan Potassium*) 50 Mg Tablet, 50 MG PO DAILY, TAB 06/11/19 Pravastatin Sodium* (Pravastatin Sodium*) 20 Mg Tablet, 20 MG PO HS, TAB 06/11/19 Omeprazole* (Omeprazole*) 20 Mg Capsule.dr, 20 MG PO DAILY, #30 CAP 06/11/19 Metformin Hcl* (Metformin Hcl*) 1,000 Mg Tablet, 1000 MG PO WITH BREAKFAST DINNE, #60 TAB 06/11/19 Glipizide* (Glipizide*) 10 Mg Tablet, 10 MG PO BID, TAB 7/23/19 Follow-up Plan Regular primary physician within 1 week Primary Care Provider Not On Staff Doctor Pending Labs Laboratory Tests Test 06/14/19 17:36 06/14/19 21:37 06/15/19 05:45 06/15/19 07:47 Bedside 277 153 175 Glucose mg/dL (70-220) mg/dL (70-220) mg/dL (70-220) Triglycerides 81 Level mg/dl (0-149) Cholesterol 128 Level mg/dl (100-200 ) LDL 61 mg/dl Cholesterol, Calculated HDL 51 Cholesterol mg/dl (35-98) Cholesterol/HDL 2.5 RATIO Ratio Test 06/15/19 11:48 Bedside 229 Glucose mg/dL (70-220) SUKI RUTLEDGE MD Jun 15, 2019 15:17
[2019-06-15 15:36] VITALS: BP 118/61; PULSE 74; RESP 18
--- NOTE | 2019-06-15 16:29 | PDOCDIS ---
Discharge Instructions DIAGNOSIS Discharge Diagnosis Left renal stone 2 cm in the renal pelvis without obstruction; ESBL E. coli UTI; diabetes mellitus type 2; cardiac dysrhythmia of unknown type on long-term ami odarone; essential hypertension; hyperlipidemia; neurocysticercosis; fatty liver CONDITION [id number] Patient Condition: [id number] Fair HOME CARE INSTRUCTIONS: [id number] Diet Instructions: [id number] Reduced Calorie ACTIVITY: [id number] Activity Restrictions: [id number] Slowly Increase Activity FOLLOW UP/APPOINTMENTS Follow-up Plan Regular primary physician within 1 week SUKI RUTLEDGE MD Jun 15, 2019 16:29
[2019-06-15] MEDS ORDERED: ATORVASTATIN 80 MG TAB PO SCH (21:00)
== END 2019-06-15 18:39 | disposition home health service (06) | DRG 694 ==
LOC: E/R 00:56 → PP2 05:20 → TEL 06-14 03:15
PROVIDERS: ADMIT Family Medicine; ATTEND Family Medicine
DX: N20.0 Calculus of kidney (principal); N39.0 Urinary tract infection, site not specified; B69.0 Cysticercosis of central nervous system; G81.94 Hemiplegia, unspecified affecting left nondominant side; B96.20 Unspecified Escherichia coli [E. coli] as the cause of diseases classified elsewhere; E11.9 Type 2 diabetes mellitus without complications; E78.5 Hyperlipidemia, unspecified; I10 Essential (primary) hypertension; I49.9 Cardiac arrhythmia, unspecified; K76.0 Fatty (change of) liver, not elsewhere classified; K29.70 Gastritis, unspecified, without bleeding; K80.80 Other cholelithiasis without obstruction; R29.700 NIHSS score 0; Z16.12 Extended spectrum beta lactamase (ESBL) resistance; Z79.84 Long term (current) use of oral hypoglycemic drugs
CPT/HCPCS: 36415; 70450; 70551; 71045; 74018; 74176; 80048; 80053; 80061; 81001; 82962; 83036; 83690; 83735; 84436; 84443; 84479; 85025; 85610; 85730; 86803; 87086; 87340; 96374; 96375; 97161; J0696; J1170; J1815; J1885; J2185; J2405; J2543; J7030